=== PATIENT | female | born 1980 | race Caucasian/White ===

== ENCOUNTER → 2016-11-10 | Outpatient (REF) | payer OTHER ==
[~2016-11-10] MED LIST: ACET50TA PO; BACT800T5 PO; IBUP80TA PO; NICO21PAT TOP; SUBO8MIS SL
[2016-11-10 13:56] LABS: MEAN CORPUSCULAR HEMOGLOBIN 28.7 pg (27.0-33.0); MEAN CORPUSCULAR HGB CONC 32.7 g/dl (32.0-36.5); MEAN CORPUSCULAR VOLUME 87.9 fl (80.0-96.0); RED CELL DISTRIBUTION WIDTH 12.9 % (11.5-14.5); WHITE BLOOD COUNT 10.7 10^3/uL (4.0-10.0)
[2016-11-10 15:03] LABS: HCG, SERUM QUANTITATIVE 37400 MIU/ML
== END ==
LOC: M LAB REF 12:40
PROVIDERS: ATTEND Obstetrics & Gynecology
DX: O36.80X0 Pregnancy with inconclusive fetal viability, not applicable or unspecified (principal)

== ENCOUNTER → 2016-12-25 | Outpatient (REF) | payer OTHER | LOC: M LAB REF 15:57 | PROVIDERS: ATTEND Family Medicine Addiction Medicine | DX: F19.21 Other psychoactive substance dependence, in remission (principal) ==

== ENCOUNTER → 2017-01-01 | Outpatient (REF) | payer OTHER ==
[2017-01-10 08:13] LABS: BENZODIAZEPINES, URINE SCREEN Negative ng/mL (Cutoff=200); METHADONE, URINE SCREEN Negative ng/mL (Cutoff=300); URINE NORBUPRENORPHINE Positive (.); URINE NORBUPRENORPHINE CONFIRM 728 ng/mL (Cutoff=10); pH, URINE 6.1 (4.5-8.9)
== END ==
LOC: M LAB REF 16:30
PROVIDERS: ATTEND Family Medicine Addiction Medicine
DX: F19.21 Other psychoactive substance dependence, in remission (principal)

== ENCOUNTER → 2017-01-12 | Outpatient (REF) | payer OTHER ==
[2017-01-17 00:06] LABS: BENZODIAZEPINES, URINE SCREEN Negative ng/mL (Cutoff=200); METHADONE, URINE SCREEN Negative ng/mL (Cutoff=300); URINE NORBUPRENORPHINE Positive (.); URINE NORBUPRENORPHINE CONFIRM 438 ng/mL (Cutoff=10); pH, URINE 7.1 (4.5-8.9)
== END ==
LOC: M LAB REF 17:08
PROVIDERS: ATTEND Family Medicine Addiction Medicine
DX: F19.21 Other psychoactive substance dependence, in remission (principal)

== ENCOUNTER → 2017-01-21 | Outpatient (REF) | payer OTHER | LOC: M LAB REF 17:01 | PROVIDERS: ATTEND Family Medicine Addiction Medicine | DX: F19.21 Other psychoactive substance dependence, in remission (principal) ==

== ENCOUNTER → 2017-01-28 | Outpatient (REF) | payer OTHER ==
[2017-01-28 12:54] LABS: ALBUMIN/GLOBULIN RATIO 0.83 (1.00-1.93); ALKALINE PHOSPHATASE 84 U/L (45-117); ALT/SGPT 44 U/L (12-78); AST/SGOT 16 U/L (7-37); BILIRUBIN,DIRECT 0.1 MG/DL (0.0-0.2); BILIRUBIN,TOTAL 0.3 MG/DL (0.2-1.0); TOTAL PROTEIN 6.6 GM/DL (6.4-8.2)
[2017-01-29 09:55] LABS: HEPATITIS B SURFACE ANTIBODY POSITIVE (POSITIVE)
[2017-02-01 10:10] LABS: HEPATITIS C QUANTITATION HCV Not Detected IU/mL (.)
== END ==
LOC: M SFHCPLAZ 09:33
PROVIDERS: ATTEND Internal Medicine Infectious Disease
DX: B19.21 Unspecified viral hepatitis C with hepatic coma (principal)

== ENCOUNTER → 2017-01-29 | Outpatient (REF) | payer OTHER, MEDICAID | LOC: M LAB REF 16:47 | PROVIDERS: ATTEND Family Medicine Addiction Medicine | DX: F19.21 Other psychoactive substance dependence, in remission (principal) ==

== ENCOUNTER → 2017-02-05 | Outpatient (REF) | payer OTHER | LOC: M LAB REF 15:00 → M LAB 02-06 09:34 | PROVIDERS: ATTEND Family Medicine Addiction Medicine | DX: F19.21 Other psychoactive substance dependence, in remission (principal) ==

== ENCOUNTER → 2017-02-19 | Outpatient (REF) | payer OTHER | LOC: M LAB REF 11:59 | DX: F19.21 Other psychoactive substance dependence, in remission (principal) | CPT/HCPCS: 80362 ==

== ENCOUNTER → 2017-02-26 | Outpatient (REF) | payer OTHER, MEDICAID | LOC: M LAB REF 18:47 | DX: F19.21 Other psychoactive substance dependence, in remission (principal) | CPT/HCPCS: 80307 ==

== ENCOUNTER → 2017-03-12 | Outpatient (REF) | payer OTHER ==
[2017-03-12 14:45] LABS: APPEARANCE, URINE CLOUDY (CLEAR); BACTERIA, URINE AUTO 1+ (NEGATIVE); BILIRUBIN, URINE AUTO NEGATIVE (NEGATIVE); BLOOD, URINE BLOOD 1+ (NEGATIVE); COLOR, URINE YELLOW (YELLOW); GLUCOSE, URINE (UA) AUTO NEGATIVE (NEGATIVE); KETONE, URINE AUTO NEGATIVE (NEGATIVE); LEUKOCYTE ESTERASE, URINE AUTO 3+ (NEGATIVE); MUCUS, URINE SMALL (NEGATIVE); NITRITE, URINE AUTO NEGATIVE (NEGATIVE); PROTEIN, URINE AUTO NEGATIVE (NEGATIVE); RBC, URINE AUTO 20 /HPF (0-3); SPECIFIC GRAVITY URINE AUTO 1.014 (1.002-1.035); SQUAMOUS EPITHELIAL CELL UR AU 1 /HPF (0-6); UROBILINOGEN, URINE AUTO 0.2 mg/dL (0.0-2.0); WBC, URINE AUTO TNTC /HPF (0-3)
== END ==
LOC: M LAB REF 13:23
DX: R30.0 Dysuria (principal)

== ENCOUNTER → 2017-03-19 | Outpatient (REF) | payer OTHER, MEDICAID | LOC: M LAB REF 19:12 | DX: F19.21 Other psychoactive substance dependence, in remission (principal) | CPT/HCPCS: 80307 ==

== ENCOUNTER → 2017-04-02 | Outpatient (REF) | payer OTHER, MEDICAID | LOC: M LAB REF 21:20 | DX: F19.21 Other psychoactive substance dependence, in remission (principal) | CPT/HCPCS: 80307 ==

== ENCOUNTER → 2017-04-19 | Outpatient (REF) | payer OTHER, MEDICAID | LOC: M LAB REF 19:22 | DX: F19.21 Other psychoactive substance dependence, in remission (principal) ==

== ENCOUNTER → 2017-04-20 | Outpatient (CLI) | payer OTHER ==
[2017-04-20 13:55] LABS: GLUCOSE CHALLENGE TEST 1 HOUR 120 MG/DL (LESS THAN 140)
[2017-04-20 14:00] LABS: HEMATOCRIT 31.9 % (36.0-47.0); HEMOGLOBIN 10.6 g/dl (12.0-16.0); MEAN CORPUSCULAR HEMOGLOBIN 28.7 pg (27.0-33.0); MEAN CORPUSCULAR HGB CONC 33.2 g/dl (32.0-36.5); MEAN CORPUSCULAR VOLUME 86.4 fl (80.0-96.0); PLATELET COUNT, AUTOMATED 304 10^3/uL (150-450); RED BLOOD COUNT 3.69 10^6/uL (4.00-5.40); RED CELL DISTRIBUTION WIDTH 12.9 % (11.5-14.5); WHITE BLOOD COUNT 13.4 10^3/uL (4.0-10.0)
== END ==
LOC: M LAB 11:29
DX: Z34.82 Encounter for supervision of other normal pregnancy, second trimester (principal)
CPT/HCPCS: 82950

== ENCOUNTER → 2017-05-04 | Outpatient (REF) | payer OTHER | LOC: M LAB REF 16:32 | DX: F19.21 Other psychoactive substance dependence, in remission (principal) ==

== ENCOUNTER → 2017-05-06 | Outpatient (REF) | payer OTHER | LOC: M LAB REF 17:19 | DX: O09.93 Supervision of high risk pregnancy, unspecified, third trimester (principal); Z3A.35 35 weeks gestation of pregnancy ==

== ENCOUNTER → 2017-05-19 | Outpatient (REF) | payer OTHER ==
[2017-05-26 00:08] LABS: AMPHETAMINE SCREEN, URINE Negative ng/mL (Cutoff=1000); BARBITURATES SCREEN, URINE Negative ng/mL (Cutoff=200); BENZODIAZEPINES, URINE SCREEN Negative ng/mL (Cutoff=200); CANNABINOID SCREEN, URINE Negative ng/mL (Cutoff=20); COCAINE SCREEN, URINE Negative ng/mL (Cutoff=300); CREATININE, URINE 140.8 mg/dL (20.0-300.0); FENTANYL URINE SCREEN Negative pg/mL (Cutoff=2000); METHADONE, URINE SCREEN Negative ng/mL (Cutoff=300); NALOXONE RESULT Positive (.); OPIATE SCREEN, URINE Negative ng/mL (Cutoff=300); OXYCODONE, SCREEN, URINE Negative ng/mL (Cutoff=100); PCP SCREEN, URINE Negative ng/mL (Cutoff=25); SPECIFIC GRAVITY, URINE 1.023 (.); URINE BUPRENORPHINE Positive (.); URINE BUPRENORPHINE Positive (Cutoff=10); URINE BUPRENORPHINE See Final Results ng/mL (Cutoff=10); URINE BUPRENORPHINE CONFIRM 76 ng/mL (Cutoff=10); URINE NORBUPRENORPHINE Positive (.); URINE NORBUPRENORPHINE CONFIRM 446 ng/mL (Cutoff=10)
== END ==
LOC: M LAB REF 16:48
DX: F19.21 Other psychoactive substance dependence, in remission (principal)
CPT/HCPCS: 80362

== ENCOUNTER → 2017-06-01 | Outpatient (REF) | payer OTHER ==
[2017-06-07 14:12] LABS: AMPHETAMINE SCREEN, URINE Negative ng/mL (Cutoff=1000); BARBITURATES SCREEN, URINE Negative ng/mL (Cutoff=200); BENZODIAZEPINES, URINE SCREEN Negative ng/mL (Cutoff=200); CANNABINOID SCREEN, URINE Negative ng/mL (Cutoff=20); COCAINE SCREEN, URINE Negative ng/mL (Cutoff=300); CREATININE, URINE 72.5 mg/dL (20.0-300.0); FENTANYL URINE SCREEN Negative pg/mL (Cutoff=2000); METHADONE, URINE SCREEN Negative ng/mL (Cutoff=300); NALOXONE RESULT Positive (.); OPIATE SCREEN, URINE Negative ng/mL (Cutoff=300); OXYCODONE, SCREEN, URINE Negative ng/mL (Cutoff=100); PCP SCREEN, URINE Negative ng/mL (Cutoff=25); SPECIFIC GRAVITY, URINE 1.017 (.); URINE BUPRENORPHINE Positive (.); URINE BUPRENORPHINE Positive (Cutoff=10); URINE BUPRENORPHINE See Final Results ng/mL (Cutoff=10); URINE BUPRENORPHINE CONFIRM 100 ng/mL (Cutoff=10); URINE NORBUPRENORPHINE Positive (.); URINE NORBUPRENORPHINE CONFIRM 306 ng/mL (Cutoff=10); pH, URINE 6.9 (4.5-8.9)
== END ==
LOC: M LAB REF 11:10
DX: F19.21 Other psychoactive substance dependence, in remission (principal)
CPT/HCPCS: 80362

== ENCOUNTER 2017-06-03 05:02 | Inpatient (IN) | payer OTHER ==
[2017-06-03] MEDS: LR 1,000 ML IV ×4 (06:26→15:47)
[2017-06-03] MEDS ORDERED: LR 1,000 ML IV (06:30)
[2017-06-03 07:12] LABS: HEMATOCRIT 33.5 % (36.0-47.0); HEMOGLOBIN 11.2 g/dl (12.0-15.5); MEAN CORPUSCULAR HEMOGLOBIN 28.2 pg (27.0-33.0); MEAN CORPUSCULAR HGB CONC 33.4 g/dl (32.0-36.5); MEAN CORPUSCULAR VOLUME 84.4 fl (80.0-96.0); PLATELET COUNT, AUTOMATED 323 10^3/uL (150-450); RED BLOOD COUNT 3.97 10^6/uL (4.00-5.40); RED CELL DISTRIBUTION WIDTH 13.1 % (11.5-14.5); WHITE BLOOD COUNT 15.6 10^3/uL (4.0-10.0)
[2017-06-03] MEDS: BICITRA 30ML SOLN UDC PO (07:14)
[2017-06-03] MEDS ORDERED: METOCLOPRAMIDE INJ 10MG/2ML VIAL (J2765) IV ×2 (07:57→09:15)
[2017-06-03] MEDS ORDERED: ONDANSETRON 4MG/2ML VIAL (J2405) IV ×3 (07:57→09:15)
[2017-06-03] MEDS ORDERED: NALBUPHINE HCL 10 MG/ML AMP (J2300) IV ×2 (07:57→09:15)
[2017-06-03] MEDS ORDERED: NALOXONE INJ 0.4 MG/1 ML VIAL (J2310) IV ×2 (07:57)
[2017-06-03] MEDS ORDERED: MOM 30ML SUSPENSION UDC PO (08:00)
[2017-06-03] MEDS ORDERED: METHYLERGONOVINE MALEATE 0.2 MG TAB PO (08:00)
[2017-06-03] MEDS ORDERED: RHOGAM 300 MCG (1500 IU) INJ (J2790) IM (08:00)
[2017-06-03] MEDS ORDERED: MEASLES,MUMPS,RUBELLA VACCINE INJ (MMR-II) (90707) SC (08:00)
[2017-06-03] MEDS ORDERED: MORPHINE PRES-FREE INJ 10 MG/10 ML VIAL (J2274) As Ordered (08:16)
[2017-06-03] MEDS ORDERED: PHENYLephrine HCL 500 MCG/5 ML (100MCG/ML) SYRINGE (J2370) As Ordered (08:16)
[2017-06-03] MEDS ORDERED: ONDANSETRON 4MG/2ML VIAL (J2405) As Ordered (08:16)
[2017-06-03] MEDS ORDERED: OXYTOCIN INJ 10 UNITS/ML VIAL (J2590) As Ordered (08:16)
[2017-06-03] MEDS ORDERED: KETOROLAC 60 MG/2 ML VIAL (J1885) As Ordered (08:16)
[2017-06-03] MEDS ORDERED: METOCLOPRAMIDE INJ 10MG/2ML VIAL (J2765) As Ordered (08:16)
[2017-06-03 08:33] LABS: CORD GAS ABE A -1.6; CORD GAS HCO3 A 26.8 MEQ/L; CORD GAS O2 SAT A 21.5 %; CORD GAS PCO2 A 59.9 mmHg; CORD GAS PH A 7.269 UNITS; CORD GAS PO2 A 13.6 mmHg; CORD GAS SBC A 21.1 MEQ/L; CORD GAS TCO2 A 28.7 MEQ/L
[2017-06-03 08:36] LABS: CORD GAS ABE V -1.7; CORD GAS HCO3 V 24.5 MEQ/L; CORD GAS O2 SAT V 75.4 %; CORD GAS PCO2 V 46.4 mmHg; CORD GAS PO2 V 34.5 mmHg; CORD GAS SBC V 22.5 MEQ/L; CORD GAS TCO2 V 25.9 MEQ/L
[2017-06-03] MEDS: DOCUSATE SODIUM 100 MG CAP PO ×2 (09:00→21:39)
[2017-06-03] MEDS: PRENATAL VITAMINS CHEWABLE TABLET PO (09:00)
[2017-06-03] MEDS ORDERED: MEPERIDINE INJ 25 MG/ML VIAL (J2175) IV (09:15)
[2017-06-03] MEDS ORDERED: fentaNYL 100 MCG/2 ML INJECTION (J3010) IV (09:15)
[2017-06-03] MEDS: BUPRENORPHINE/NALOXONE 8-2MG SUBLINGUAL TABLET(SUBOXONE) SL ×2 (11:37→21:39)
[2017-06-03] MEDS: ACETAMINOPHEN 500 MG TAB PO (14:32)
[2017-06-03] MEDS: IBUPROFEN 800 MG TAB PO ×2 (16:31→23:49)
[2017-06-03] MEDS: NICOTINE 14 MG/24 HR TRANSDERMAL TD (16:31)
[2017-06-04] MEDS: ACETAMINOPHEN 500 MG TAB PO ×2 (03:33→20:02)
[2017-06-04] MEDS: BUPRENORPHINE/NALOXONE 8-2MG SUBLINGUAL TABLET(SUBOXONE) SL ×3 (05:46→21:12)
[2017-06-04 07:49] LABS: HEMATOCRIT 32.2 % (36.0-47.0); HEMOGLOBIN 10.4 g/dl (12.0-15.5); MEAN CORPUSCULAR HEMOGLOBIN 28.7 pg (27.0-33.0); MEAN CORPUSCULAR HGB CONC 32.3 g/dl (32.0-36.5); MEAN CORPUSCULAR VOLUME 88.7 fl (80.0-96.0); PLATELET COUNT, AUTOMATED 234 10^3/uL (150-450); RED BLOOD COUNT 3.63 10^6/uL (4.00-5.40); RED CELL DISTRIBUTION WIDTH 13.2 % (11.5-14.5); WHITE BLOOD COUNT 11.3 10^3/uL (4.0-10.0)
[2017-06-04] MEDS: NICOTINE 14 MG/24 HR TRANSDERMAL TD (08:48)
[2017-06-04] MEDS: DOCUSATE SODIUM 100 MG CAP PO ×2 (08:48→21:11)
[2017-06-04] MEDS: PRENATAL VITAMINS CHEWABLE TABLET PO (08:48)
[2017-06-04] MEDS: IBUPROFEN 800 MG TAB PO ×2 (08:49→16:29)
[2017-06-05] MEDS: BUPRENORPHINE/NALOXONE 8-2MG SUBLINGUAL TABLET(SUBOXONE) SL (05:40)
[2017-06-05] MEDS: IBUPROFEN 800 MG TAB PO ×2 (08:42)
[2017-06-05] MEDS: PRENATAL VITAMINS CHEWABLE TABLET PO (08:42)
[2017-06-05] MEDS: DOCUSATE SODIUM 100 MG CAP PO (08:42)
[2017-06-05] MEDS: NICOTINE 14 MG/24 HR TRANSDERMAL TD (08:42)
== END 2017-06-05 14:52 | disposition home or self-care (01) | DRG 540 ==
LOC: M LDI 05:02 → M OBS 10:05
PROVIDERS: Obstetrics & Gynecology
PROC: 10D00Z1 Extraction of Products of Conception, Low, Open Approach (ICD-10-PCS; principal; 2017-06-03 07:30)
PROC: 0HB7XZZ Excision of Abdomen Skin, External Approach (ICD-10-PCS; 2017-06-03 07:30)
DX: O34.211 Maternal care for low transverse scar from previous cesarean delivery (principal); Z37.0 Single live birth; Z3A.39 39 weeks gestation of pregnancy

== ENCOUNTER → 2017-06-16 | Outpatient (REF) | payer OTHER ==
[2017-06-16 21:07] LABS: BASO # 0.1 10^3/uL (0.0-0.2); BASO % 0.8 % (0.0-1.0); EOS # 0.4 10^3/uL (0.0-0.50); HEMATOCRIT 35.9 % (36.0-47.0); HEMOGLOBIN 11.6 g/dl (12.0-15.5); IMMATURE GRANULOCYTE % 0.4 % (0-3.0); LYMPH # 2.7 10^3/uL (1.5-4.5); LYMPH % 27.4 % (24.0-44.0); MEAN CORPUSCULAR HGB CONC 32.3 g/dl (32.0-36.5); MEAN CORPUSCULAR VOLUME 86.7 fl (80.0-96.0); MONO # 0.6 10^3/uL (0.0-0.8); MONO % 5.7 % (0.0-5.0); NEUTROPHILS # 6.1 10^3/uL (1.8-7.7); NEUTROPHILS % 61.7 % (36.0-66.0); PLATELET COUNT, AUTOMATED 471 10^3/uL (150-450); RED BLOOD COUNT 4.14 10^6/uL (4.00-5.40); RED CELL DISTRIBUTION WIDTH 12.7 % (11.5-14.5); WHITE BLOOD COUNT 9.9 10^3/uL (4.0-10.0)
[2017-06-16 21:26] LABS: ALBUMIN 3.3 GM/DL (3.2-5.2); ALBUMIN/GLOBULIN RATIO 0.87 (1.00-1.93); ALKALINE PHOSPHATASE 92 U/L (45-117); ALT/SGPT 21 U/L (12-78); ANION GAP 10 MEQ/L (8-16); AST/SGOT 19 U/L (7-37); BILIRUBIN,TOTAL 0.3 MG/DL (0.2-1.0); BLOOD UREA NITROGEN 18 MG/DL (7-18); CALCIUM LEVEL 8.5 MG/DL (8.5-10.1); CARBON DIOXIDE LEVEL 25 MEQ/L (21-32); CHLORIDE LEVEL 108 MEQ/L (98-107); CREATININE FOR GFR 1.01 MG/DL (0.55-1.30); GLOMERULAR FILTRATION RATE > 60.0 (>60); GLUCOSE, FASTING 109 MG/DL (70-100); POTASSIUM SERUM 3.9 MEQ/L (3.5-5.1); SODIUM LEVEL 143 MEQ/L (136-145); TOTAL PROTEIN 7.1 GM/DL (6.4-8.2)
[2017-06-21 14:12] LABS: AMPHETAMINE SCREEN, URINE Negative ng/mL (Cutoff=1000); BARBITURATES SCREEN, URINE Negative ng/mL (Cutoff=200); BENZODIAZEPINES, URINE SCREEN Negative ng/mL (Cutoff=200); CANNABINOID SCREEN, URINE Negative ng/mL (Cutoff=20); COCAINE SCREEN, URINE Negative ng/mL (Cutoff=300); CREATININE, URINE 59.9 mg/dL (20.0-300.0); FENTANYL URINE SCREEN Negative pg/mL (Cutoff=2000); METHADONE, URINE SCREEN Negative ng/mL (Cutoff=300); OPIATE SCREEN, URINE Negative ng/mL (Cutoff=300); OXYCODONE, SCREEN, URINE Negative ng/mL (Cutoff=100); PCP SCREEN, URINE Negative ng/mL (Cutoff=25); SPECIFIC GRAVITY, URINE 1.018 (.); URINE BUPRENORPHINE Positive (.); URINE BUPRENORPHINE Positive (Cutoff=10); URINE BUPRENORPHINE See Final Results ng/mL (Cutoff=10); URINE BUPRENORPHINE CONFIRM 110 ng/mL (Cutoff=10); URINE NORBUPRENORPHINE Positive (.); URINE NORBUPRENORPHINE CONFIRM 416 ng/mL (Cutoff=10); pH, URINE 6.8 (4.5-8.9)
== END ==
LOC: M LAB REF 17:28
DX: F19.21 Other psychoactive substance dependence, in remission (principal); R80.8 Other proteinuria; R60.0 Localized edema

== ENCOUNTER → 2017-06-23 | Outpatient (REF) | payer OTHER | LOC: M LAB REF 16:20 | DX: F19.21 Other psychoactive substance dependence, in remission (principal) | CPT/HCPCS: 80362 ==

== ENCOUNTER → 2017-06-30 | Outpatient (REF) | payer OTHER ==
[2017-07-07 10:20] LABS: AMPHETAMINE SCREEN, URINE Negative ng/mL (Cutoff=1000); BARBITURATES SCREEN, URINE Negative ng/mL (Cutoff=200); BENZODIAZEPINES, URINE SCREEN Negative ng/mL (Cutoff=200); CANNABINOID SCREEN, URINE Negative ng/mL (Cutoff=20); COCAINE SCREEN, URINE Negative ng/mL (Cutoff=300); CREATININE, URINE 81.6 mg/dL (20.0-300.0); FENTANYL URINE SCREEN Negative pg/mL (Cutoff=2000); METHADONE, URINE SCREEN Negative ng/mL (Cutoff=300); NALOXONE RESULT Positive (.); OPIATE SCREEN, URINE Negative ng/mL (Cutoff=300); OXYCODONE, SCREEN, URINE Negative ng/mL (Cutoff=100); PCP SCREEN, URINE Negative ng/mL (Cutoff=25); SPECIFIC GRAVITY, URINE 1.026 (.); URINE BUPRENORPHINE Positive (.); URINE BUPRENORPHINE Positive (Cutoff=10); URINE BUPRENORPHINE See Final Results ng/mL (Cutoff=10); URINE BUPRENORPHINE CONFIRM 302 ng/mL (Cutoff=10); URINE NORBUPRENORPHINE Positive (.); URINE NORBUPRENORPHINE CONFIRM 944 ng/mL (Cutoff=10)
== END ==
LOC: M LAB REF 09:50
DX: F19.21 Other psychoactive substance dependence, in remission (principal)
CPT/HCPCS: 80362

== ENCOUNTER → 2017-07-14 | Outpatient (REF) | payer OTHER ==
[2017-07-27 08:07] LABS: AMPHETAMINE SCREEN, URINE Negative ng/mL (Cutoff=1000); BARBITURATES SCREEN, URINE Negative ng/mL (Cutoff=200); BENZODIAZEPINES, URINE SCREEN Negative ng/mL (Cutoff=200); CANNABINOID SCREEN, URINE Negative ng/mL (Cutoff=20); COCAINE SCREEN, URINE Negative ng/mL (Cutoff=300); CREATININE, URINE 91.7 mg/dL (20.0-300.0); FENTANYL URINE SCREEN Negative pg/mL (Cutoff=2000); METHADONE, URINE SCREEN Negative ng/mL (Cutoff=300); NALOXONE RESULT Positive (.); OPIATE SCREEN, URINE Negative ng/mL (Cutoff=300); OXYCODONE, SCREEN, URINE Negative ng/mL (Cutoff=100); PCP SCREEN, URINE Negative ng/mL (Cutoff=25); SPECIFIC GRAVITY, URINE 1.021 (.); URINE BUPRENORPHINE Positive (.); URINE BUPRENORPHINE Positive (Cutoff=10); URINE BUPRENORPHINE See Final Results ng/mL (Cutoff=10); URINE BUPRENORPHINE CONFIRM 90 ng/mL (Cutoff=10); URINE NORBUPRENORPHINE Positive (.); URINE NORBUPRENORPHINE CONFIRM 402 ng/mL (Cutoff=10); pH, URINE 5.9 (4.5-8.9)
== END ==
LOC: M LAB REF 07-15 08:22
DX: F19.21 Other psychoactive substance dependence, in remission (principal)

== ENCOUNTER → 2017-12-13 | Outpatient (CLI) | payer OTHER | LOC: M WHC 11:35 | DX: Z32.01 Encounter for pregnancy test, result positive (principal) | CPT/HCPCS: 76811 ==

== ENCOUNTER → 2018-01-11 | Outpatient (REF) | payer OTHER ==
[2018-01-11 18:10] LABS: HEMATOCRIT 34.3 % (36.0-47.0); HEMOGLOBIN 11.3 g/dl (12.0-15.5); MEAN CORPUSCULAR HGB CONC 32.9 g/dl (32.0-36.5); MEAN CORPUSCULAR VOLUME 87.9 fl (80.0-96.0); PLATELET COUNT, AUTOMATED 295 10^3/uL (150-450); RED CELL DISTRIBUTION WIDTH 12.9 % (11.5-14.5); WHITE BLOOD COUNT 11.6 10^3/uL (4.0-10.0)
[2018-01-11 18:42] LABS: HCG, SERUM QUANTITATIVE 6051 MIU/ML
[2018-01-12 11:32] LABS: RUBELLA IgG QUALITATIVE IMMUNE (IMMUNE)
[2018-01-12 12:01] LABS: HIV 1&2 SCREEN CENTAUR NEGATIVE (NEGATIVE)
[2018-01-12 12:15] LABS: HEPATITIS C VIRUS ABY INDEX > 11.0 INDEX (<0.8)
[2018-01-12 14:28] LABS: HBsAg Prenatal NEGATIVE (NEGATIVE)
[2018-01-17 14:10] LABS: HCV RNA NAA QUALITATIVE Negative (Negative)
== END ==
LOC: M LAB REF 17:21
DX: Z36.89 Encounter for other specified antenatal screening (principal)
CPT/HCPCS: 86762

== ENCOUNTER → 2018-03-01 | Outpatient (CLI) | payer OTHER ==
[~2018-03-01] MED LIST changes: +ACET500T15 PO; +ADVI200T PO; +BUPR8SUB SL; +DOK100TA PO; +FERR32TA PO; +PRENTAB55 PO
[2018-03-01 12:16] LABS: HEMATOCRIT 33.5 % (36.0-47.0); HEMOGLOBIN 11.3 g/dl (12.0-15.5); MEAN CORPUSCULAR HEMOGLOBIN 29.1 pg (27.0-33.0); MEAN CORPUSCULAR HGB CONC 33.7 g/dl (32.0-36.5); MEAN CORPUSCULAR VOLUME 86.3 fl (80.0-96.0); PLATELET COUNT, AUTOMATED 287 10^3/uL (150-450); RED BLOOD COUNT 3.88 10^6/uL (4.00-5.40); WHITE BLOOD COUNT 12.5 10^3/uL (4.0-10.0)
== END ==
LOC: M LAB 10:49
PROVIDERS: ATTEND Obstetrics & Gynecology
DX: Z36.89 Encounter for other specified antenatal screening (principal)

== ENCOUNTER → 2018-03-29 | Outpatient (CLI) | payer OTHER ==
--- NOTE | 2018-03-29 11:44 | REP ---
OB ULTRASOUND: Real-time sonographic evaluation of the gravid uterus performed. There is a single living intrauterine gestation. Estimated gestational age 34 weeks 4 days. EDC 05/06/2018. Today's measurements indicate appropriate growth. BPD 83 mm 33 weeks 2 days, 30th percentile HC 313 mm 35 weeks 0 days, 56th percentile AC 316 mm 35 weeks 4 days, 64th percentile FL 69 mm 35 weeks 2 days, 59th percentile HC/AC ratio 0.99 within normal range. Estimated weight 3605 grams, 57th percentile. Cervix is closed and measures 6 cm in length. heart rate 126 beats per minute. stomach, kidneys, bladder, and spine are visualized and are grossly unremarkable. position vertex. Placenta is anterior and grade 0. There is again evidence of complete placenta previa. Amniotic fluid appears within normal limits.
== END ==
LOC: M WHC 08:58
PROVIDERS: ATTEND Obstetrics & Gynecology
DX: O44.03 Complete placenta previa NOS or without hemorrhage, third trimester (principal); Z36.89 Encounter for other specified antenatal screening; Z3A.34 34 weeks gestation of pregnancy

== ENCOUNTER → 2018-03-30 | Outpatient (REF) | payer OTHER ==
[2018-03-30 15:07] LABS: INFLUENZA A AMPLIFICATION NEGATIVE (NEGATIVE); INFLUENZA B AMPLIFICATION NEGATIVE (NEGATIVE)
== END ==
LOC: M LAB REF 14:04
PROVIDERS: ATTEND Physician Assistant
DX: J11.1 Influenza due to unidentified influenza virus with other respiratory manifestations (principal)

== ENCOUNTER → 2018-04-05 | Outpatient (REF) | payer OTHER | LOC: M LAB REF 13:21 | PROVIDERS: ATTEND Obstetrics & Gynecology | DX: Z34.83 Encounter for supervision of other normal pregnancy, third trimester (principal); Z3A.35 35 weeks gestation of pregnancy ==

== ENCOUNTER 2018-04-20 07:07 | Inpatient (IN) | payer OTHER ==
[2018-04-20] VITALS (30 sets, daily range): BP systolic 75–112; BP diastolic 37–56
[~2018-04-20] VITALS: Ht 160 cm; Wt 114.8 kg
[2018-04-20] MEDS ORDERED: LACTATED RINGER'S 1000 ML IV ONE (07:30)
[2018-04-20] MEDS ORDERED: BICITRA 30ML SOLN UDC PO ONE (07:30)
[2018-04-20 08:24] LABS: HEMATOCRIT 32.4 % (36.0-47.0); HEMOGLOBIN 10.6 g/dl (12.0-15.5); MEAN CORPUSCULAR HEMOGLOBIN 27.7 pg (27.0-33.0); MEAN CORPUSCULAR HGB CONC 32.7 g/dl (32.0-36.5); MEAN CORPUSCULAR VOLUME 84.8 fl (80.0-96.0); PLATELET COUNT, AUTOMATED 271 10^3/uL (150-450); RED BLOOD COUNT 3.82 10^6/uL (4.00-5.40); WHITE BLOOD COUNT 11.2 10^3/uL (4.0-10.0)
[2018-04-20] MEDS: LR 1,000 ML IV SCH ×2 (08:59→09:29)
[2018-04-20] MEDS ORDERED: ONDANSETRON 4MG/2ML VIAL (J2405) IV PRN ×2 (10:00→11:30)
[2018-04-20] MEDS ORDERED: NALBUPHINE HCL 10 MG/ML AMP (J2300) IV PRN (10:00)
[2018-04-20] MEDS ORDERED: NALOXONE INJ 0.4 MG/1 ML VIAL (J2310) IV PRN ×2 (10:00)
[2018-04-20] MEDS ORDERED: METOCLOPRAMIDE INJ 10MG/2ML VIAL (J2765) IV PRN ×2 (10:00→11:30)
[2018-04-20] MEDS ORDERED: diphenhydrAMINE INJ 50MG/ML VIAL (J1200) IV PRN (10:00)
[2018-04-20] MEDS ORDERED: KETOROLAC 60 MG/2 ML VIAL (J1885) As Ordered ONE ×2 (10:03→14:25)
[2018-04-20] MEDS ORDERED: MORPHINE PRES-FREE INJ 10 MG/10 ML VIAL (J2274) As Ordered ONE ×2 (10:03→14:25)
[2018-04-20] MEDS ORDERED: OXYTOCIN INJ 10 UNITS/ML VIAL (J2590) As Ordered ONE ×2 (10:03→14:25)
[2018-04-20] MEDS ORDERED: ONDANSETRON 4MG/2ML VIAL (J2405) As Ordered ONE ×2 (10:03→14:25)
[2018-04-20] MEDS ORDERED: BUPIVACAINE/DEXTROSE 0.75% 2 ML AMP As Ordered ONE ×2 (10:03→14:25)
[2018-04-20] MEDS ORDERED: ePHEDrine SULFATE 25 MG/5 ML(5MG/ML) SYRINGE As Ordered ONE ×2 (10:11→11:46)
[2018-04-20] MEDS ORDERED: PHENYLephrine HCL 500 MCG/5 ML (100MCG/ML) SYRINGE (J2370) As Ordered ONE (10:11)
[2018-04-20] MEDS ORDERED: GLYCOPYRROLATE INJ 0.2 MG/ML 2 ML VIAL As Ordered ONE (10:11)
[2018-04-20 10:25] LABS: CORD GAS ABE A -0.3; CORD GAS HCO3 A 27.9 MEQ/L; CORD GAS O2 SAT A 40.9 %; CORD GAS PCO2 A 60.3 mmHg; CORD GAS PH A 7.283 UNITS; CORD GAS PO2 A 20.3 mmHg; CORD GAS SBC A 22.8 MEQ/L; CORD GAS TCO2 A 29.7 MEQ/L
[2018-04-20 10:30] LABS: CORD GAS ABE V -3.1; CORD GAS HCO3 V 23.9 MEQ/L; CORD GAS O2 SAT V 68.3 %; CORD GAS PH V 7.297 UNITS; CORD GAS PO2 V 29.4 mmHg; CORD GAS SBC V 21.2 MEQ/L; CORD GAS TCO2 V 25.4 MEQ/L
[2018-04-20] MEDS ORDERED: METOCLOPRAMIDE INJ 10MG/2ML VIAL (J2765) As Ordered ONE (10:31)
[2018-04-20] MEDS ORDERED: fentaNYL 100 MCG/2 ML INJECTION (J3010) IV PRN (11:30)
[2018-04-20] MEDS ORDERED: PERCOCET 5MG/325MG TAB PO PRN (11:30)
[2018-04-20] MEDS ORDERED: LR 1,000 ML IV SCH (11:30)
[2018-04-20] MEDS ORDERED: OXYTOCIN DRIP 30 UNITS in APPROPRIATE DILUENT 1 EA IV SCH (11:44)
[2018-04-20] MEDS ORDERED: MOM 30ML SUSPENSION UDC PO PRN (11:45)
[2018-04-20] MEDS ORDERED: MEASLES,MUMPS,RUBELLA VACCINE INJ (MMR-II) (90707) SC SCH (11:45)
[2018-04-20] MEDS ORDERED: METHYLERGONOVINE MALEATE 0.2 MG TAB PO PRN (11:45)
[2018-04-20] MEDS ORDERED: RHOGAM 300 MCG (1500 IU) INJ (J2790) IM SCH (11:45)
[2018-04-20] MEDS: ePHEDrine INJ 50 MG/ML VIAL IV PRN ×2 (11:48→11:52)
[2018-04-20] MEDS ORDERED: ePHEDrine INJ 50 MG/ML VIAL IV STA (12:05)
[2018-04-20] MEDS ORDERED: OXYTOCIN 30 UNITS IN 0.9% NaCl 500ML IV BAG (J2590) As Ordered ONE (12:09)
[2018-04-20 12:22] LABS: HEMATOCRIT 27.9 % (36.0-47.0); MEAN CORPUSCULAR HEMOGLOBIN 27.7 pg (27.0-33.0); MEAN CORPUSCULAR HGB CONC 32.3 g/dl (32.0-36.5); MEAN CORPUSCULAR VOLUME 85.8 fl (80.0-96.0); PLATELET COUNT, AUTOMATED 228 10^3/uL (150-450); RED BLOOD COUNT 3.25 10^6/uL (4.00-5.40); WHITE BLOOD COUNT 12.6 10^3/uL (4.0-10.0)
[2018-04-20] MEDS: METHYLERGONOVINE MALEATE 0.2 MG TAB PO SCH ×3 (12:32→20:32)
[2018-04-20] MEDS: ACETAMINOPHEN TAB 650MG DOSE (2X325MG) PO PRN ×2 (14:11→19:34)
[2018-04-20 15:52] LABS: HEMATOCRIT 25.7 % (36.0-47.0); HEMOGLOBIN 8.4 g/dl (12.0-15.5); MEAN CORPUSCULAR HEMOGLOBIN 27.5 pg (27.0-33.0); MEAN CORPUSCULAR HGB CONC 32.7 g/dl (32.0-36.5); MEAN CORPUSCULAR VOLUME 84.3 fl (80.0-96.0); PLATELET COUNT, AUTOMATED 231 10^3/uL (150-450); RED BLOOD COUNT 3.05 10^6/uL (4.00-5.40); WHITE BLOOD COUNT 12.6 10^3/uL (4.0-10.0)
[2018-04-20 20:01] LABS: HEMATOCRIT 24.3 % (36.0-47.0); HEMOGLOBIN 7.9 g/dl (12.0-15.5); MEAN CORPUSCULAR HEMOGLOBIN 27.9 pg (27.0-33.0); MEAN CORPUSCULAR HGB CONC 32.5 g/dl (32.0-36.5); MEAN CORPUSCULAR VOLUME 85.9 fl (80.0-96.0); PLATELET COUNT, AUTOMATED 231 10^3/uL (150-450); RED BLOOD COUNT 2.83 10^6/uL (4.00-5.40); WHITE BLOOD COUNT 10.8 10^3/uL (4.0-10.0)
[2018-04-20] MEDS: BUPRENORPHINE/NALOXONE 8-2MG SUBLINGUAL TABLET(SUBOXONE) SL SCH (20:32)
[2018-04-20] MEDS: DOCUSATE SODIUM 100 MG CAP PO SCH (20:33)
[2018-04-21] VITALS (10 sets, daily range): BP systolic 94–121; BP diastolic 45–65
[2018-04-21] MEDS: METHYLERGONOVINE MALEATE 0.2 MG TAB PO SCH ×2 (02:46→06:20)
[2018-04-21] MEDS: LR 1,000 ML IV SCH ×2 (02:46→06:20)
[2018-04-21] MEDS: ACETAMINOPHEN TAB 650MG DOSE (2X325MG) PO PRN ×5 (06:20→22:33)
[2018-04-21 06:26] LABS: HEMATOCRIT 29.7 % (36.0-47.0); HEMOGLOBIN 9.7 g/dl (12.0-15.5); MEAN CORPUSCULAR HGB CONC 32.7 g/dl (32.0-36.5); MEAN CORPUSCULAR VOLUME 85.8 fl (80.0-96.0); PLATELET COUNT, AUTOMATED 217 10^3/uL (150-450); RED BLOOD COUNT 3.46 10^6/uL (4.00-5.40)
[2018-04-21] MEDS: DOCUSATE SODIUM 100 MG CAP PO SCH ×2 (08:40→21:02)
[2018-04-21] MEDS: PRENATAL VITAMINS CHEWABLE TABLET PO SCH (08:40)
[2018-04-21] MEDS: BUPRENORPHINE/NALOXONE 8-2MG SUBLINGUAL TABLET(SUBOXONE) SL SCH ×2 (08:41→21:02)
[2018-04-21] MEDS: IBUPROFEN 800 MG TAB PO PRN ×2 (08:41→16:57)
--- NOTE | 2018-04-21 08:54 | HPE ---
DATE OF ADMISSION: 04/20/2018 Dana is a 37-year-old female 4, para 2-0-1-2 with a history of two prior sections and a history of drug abuse currently on Suboxone. She has a complete placenta previa with this and is scheduled for elective repeat section with possible hysterectomy. Her records reviewed which was essentially unremarkable other than the history of drug abuse currently on a Suboxone program, she is taking 8 mg twice a day. PAST MEDICAL HISTORY: Significant for hepatitis C. PAST SURGICAL HISTORY: sections and gallbladder removal. SOCIAL HISTORY: She is current smoker, former drug abuser, used cocaine and marijuana in the past. She is currently on a drug addiction program on Suboxone. FAMILY HISTORY: Significant for high blood pressure. MEDICATIONS: - vitamins - Suboxone 8 mg twice a day ALLERGIES: To LATEX. PHYSICAL EXAMINATION: Obese female in no acute distress. Abdomen soft, nontender, nondistended. Extremities show no clubbing, cyanosis or edema. Tracing reviewed, category 1 tracing. ASSESSMENT: 1. Intrauterine at 37 and 5 weeks gestation with a history of prior section, placenta previa, being admitted for elective repeat section. The patient also desires permanent tubal sterilization. PLAN: Admit to labor and delivery. Routine labs sent. The patient is type and cross for 2 units of packed red blood cells (RBCs). The risks of hysterectomy discussed with the patient was well as potential blood loss and transfusion. Both the patient and father of the baby agrees and we will proceed with a repeat section, bilateral tubal ligation and revision of old scar.
--- NOTE | 2018-04-21 09:16 | RO ---
DATE OF PROCEDURE: 04/20/2018 Dana is a 37-year-old female who was admitted at 37-5/7 weeks gestation with a history of prior section and complete previa during this . The patient also desires permanent tubal sterilization. PREOPERATIVE DIAGNOSES: 1. Intrauterine at 37-5/7 weeks gestation with a history of prior section. 2. Complete placenta previa. 3. Desires permanent tubal sterilization. POSTOPERATIVE DIAGNOSES: 1. Intrauterine at 37-5/7 weeks gestation with a history of prior section. 2. Complete placenta previa. 3. Desires permanent tubal sterilization. 4. Placenta accreta. 5. Large thin lower uterine window segment. PROCEDURE PERFORMED: 1. Repeat section. 2. Bilateral salpingectomy. 3. Revision of old scar. SURGEON: Dr. Dixon Linda FINANCIAL SALES ADVISOR: Dr. Robbins ANESTHESIA: Spinal. COMPLICATIONS: None. ESTIMATED BLOOD LOSS: 840 mL. FINDINGS: Placenta previa with an anterior placenta and placental accreta. Dense scar tissue was noted to the pelvic sidewalls. SPECIMEN SENT TO LAB: Bilateral tubes and the placenta. DESCRIPTION OF PROCEDURE: After obtaining informed consent, the patient was taken to the operating room where spinal anesthetic was found to be adequate. She was then draped and prepped in the usual sterile fashion in the supine position with the help of my office manager executive assistant, Dr. Robbins. I then made an elliptical incision over the old scar. The old scar was removed. The incision was carried down to the fascia. The fascia was incised in midline fashion. This was carried down to the rectus muscle. The rectus muscle was in midline fashion. The peritoneal cavity entered. At this point, a Mobius skin retractor was placed. The pelvis and uterus was inspected. An anterior placenta previa was noted with the placenta bulging out of the lower uterine segment, the lower uterine segment being extremely thin. At this point, a decision was made to make an incision above the lower segment of the uterus. The infant was delivered without disturbing the placenta. The cord was clamped and cut. We then shelved out the placenta after sending cord blood and cord gas. After removing the placenta, the lower segment of the uterus was found to be extremely thin. Careful care was taken to close that lower segment in a series of two separate sutures of #0 Vicryl sutures. At this point, the lower segment of the uterus was packed with a moistened sponge lap and fundal massage as well as Pitocin IV was given. The uterus firmed up nicely. We observed that for approximately 4-5 minutes. I then turned my attention to the fallopian tubes where the fallopian tubes were removed entirely and sent to pathology for final diagnosis. Given that there was no excessive bleeding at this point, a decision was made to proceed with closing the peritoneum as well as the fascia. The peritoneum was closed in a running fashion using #2-0 Vicryl. The fascia closed in two separate segments of #0 Vicryl sutures and the skin was reapproximated in a subcuticular fashion using #3-0 Vicryl on the Juan Jose. Steri-Strips placed. The patient tolerated the procedure well. She will be transferred to recovery room in labor and delivery for monitoring with serial CBCs for bleeding. The patient and her partner were counseled extensively if there is any excessive bleeding or the uterine scar opens, we will proceed with hysterectomy. At this point, she is being sent to recovery room in stable condition. ALFREDO
[2018-04-22] MEDS: IBUPROFEN 800 MG TAB PO PRN ×2 (01:33→15:13)
[2018-04-22 01:51] VITALS: BP 91/51
[2018-04-22 06:51] LABS: HEMATOCRIT 28.3 % (36.0-47.0); HEMOGLOBIN 9.2 g/dl (12.0-15.5); MEAN CORPUSCULAR HEMOGLOBIN 28.7 pg (27.0-33.0); MEAN CORPUSCULAR HGB CONC 32.5 g/dl (32.0-36.5); MEAN CORPUSCULAR VOLUME 88.2 fl (80.0-96.0); PLATELET COUNT, AUTOMATED 228 10^3/uL (150-450); RED BLOOD COUNT 3.21 10^6/uL (4.00-5.40); WHITE BLOOD COUNT 11.4 10^3/uL (4.0-10.0)
[2018-04-22 06:59] VITALS: BP 100/56
[2018-04-22] MEDS: ACETAMINOPHEN TAB 650MG DOSE (2X325MG) PO PRN (07:09)
[2018-04-22] MEDS: BUPRENORPHINE/NALOXONE 8-2MG SUBLINGUAL TABLET(SUBOXONE) SL SCH ×2 (08:54→21:05)
[2018-04-22] MEDS: DOCUSATE SODIUM 100 MG CAP PO SCH ×2 (08:54→21:05)
[2018-04-22] MEDS: PRENATAL VITAMINS CHEWABLE TABLET PO SCH (08:54)
[2018-04-22 18:00] VITALS: BP 105/51
[2018-04-23] MEDS: IBUPROFEN 800 MG TAB PO PRN (02:15)
[2018-04-23 05:49] VITALS: BP 86/47
[2018-04-23] MEDS ORDERED: IBUP-1114 PO (07:04)
[2018-04-23] MEDS ORDERED: MAPA500T2 PO (07:04)
--- NOTE | 2018-04-23 07:26 | DSES ---
DATE OF ADMISSION: 04/20/2018 DATE OF DISCHARGE: 04/23/2018 DISCHARGE DIAGNOSIS: Repeat section with bilateral tubal ligation complicated by placenta previa and placenta accreta. SURGEON: Dr. Dixon Linda. COMMERCIAL ENERGY RATER: Dr. Wagner Robbins. HISTORY: Dana is a 37-year-old 4, para 3-0-1-3 now. She was admitted for repeat section complicated by placenta previa. Her surgery was complicated by placenta accreta. She had estimated blood loss of 840 mL. Delivered a live male 6 pounds 14 ounces, weighing 3130 grams. Her postoperative course has been complicated by anemia related to and surgery. She received 2 units of red packed cells and has been doing fine. Her pain has been controlled with oral pain medications. She has been out of bed for self care, abhishek care, visit her in the NICU. She is voiding without difficulty, passing flatus. She denies headaches, dizziness and palpitations. OBJECTIVE: Temperature 97.5, pulse 75, respirations 16, BP is 86/47 this morning. She is alert and oriented times three. Breasts: Soft, nontender. Abdomen: Fundus firm at U. Incision dressing is applied and it is intact. There is no drainage noted. Perineum is intact. Lochia rubra scant. Bilateral lower extremities with +1 edema. She is tolerating a regular diet, oral fluids. PLAN: Discharge the patient home today. She is to follow up at [facility] for a 2-week incision check and an 8-week visit with Dr. Linda. She is to continue her oral pain medications. I did review discharge instructions that include breast care, incision care, abhishek care, pelvic rest and activity restrictions, mastitis symptoms, other danger signs to report and access to her provider. The patient and her partner have had all their questions answered and do request discharge home today. edited: 04/26/2018 0730 tkf MTDD
[2018-04-23] MEDS: DOCUSATE SODIUM 100 MG CAP PO SCH (08:59)
[2018-04-23] MEDS: BUPRENORPHINE/NALOXONE 8-2MG SUBLINGUAL TABLET(SUBOXONE) SL SCH (08:59)
[2018-04-23] MEDS: PRENATAL VITAMINS CHEWABLE TABLET PO SCH (08:59)
== END 2018-04-23 12:30 | disposition home or self-care (01) | DRG 540 ==
LOC: M LDI 07:07 → M OBS 04-21 12:40
PROVIDERS: ADMIT Obstetrics & Gynecology; ATTEND Obstetrics & Gynecology
PROC: 0UB70ZZ Excision of Bilateral Fallopian Tubes, Open Approach (ICD-10-PCS; 2018-04-20)
PROC: 0JB70ZZ Excision of Back Subcutaneous Tissue and Fascia, Open Approach (ICD-10-PCS; 2018-04-20)
PROC: 10D00Z1 Extraction of Products of Conception, Low, Open Approach (ICD-10-PCS; principal; 2018-04-20 09:30)
DX: O44.03 Complete placenta previa NOS or without hemorrhage, third trimester (principal); O34.211 Maternal care for low transverse scar from previous cesarean delivery; Z37.0 Single live birth; Z3A.37 37 weeks gestation of pregnancy; Z30.2 Encounter for sterilization; O43.213 Placenta accreta, third trimester; O09.523 Supervision of elderly multigravida, third trimester

== ENCOUNTER 2020-09-28 10:24 | Inpatient (IN) | payer OTHER ==
[~2020-09-28] VITALS: Ht 160 cm; Wt 96.4 kg
[~2020-09-28 10:24] MED LIST changes: -ACET50TA PO; -DOK100TA PO; +DOK100TA2 PO; +IBUP-1114 PO; +MAPA500T17 PO; +MAPA500T2 PO; +NICO21DI3 TOP; -NICO21PAT TOP
[2020-09-28] MEDS ORDERED: KETOROLAC 30 MG/ML 1ML VIAL IV ONE (11:00)
[2020-09-28 12:30] LABS: VENOUS BASE EXCESS -1.4 (-2.0-2.0); VENOUS HCO3 26.3 MEQ/L (23.0-27.0); VENOUS O2 SATURATION 58.7 % (60.0-80.0); VENOUS PARTIAL PRESSURE O2 33.6 mmHg (30.0-50.0); VENOUS PH 7.275 UNITS (7.330-7.430); VENOUS STANDARD HCO3 22.5 MEQ/L; VENOUS TOTAL CO2 28.1 MEQ/L (24.0-28.0)
[2020-09-28 12:31] LABS: BASO % 0.3 % (0.0-1.0); EOS # 0.1 10^3/uL (0.0-0.5); EOS % 0.9 % (0.0-3.0); HEMATOCRIT 35.8 % (36.0-47.0); HEMOGLOBIN 11.2 g/dl (12.0-15.5); LYMPH # 1.4 10^3/uL (1.5-5.0); LYMPH % 11.9 % (24.0-44.0); MEAN CORPUSCULAR HEMOGLOBIN 27.7 pg (27.0-33.0); MEAN CORPUSCULAR HGB CONC 31.3 g/dl (32.0-36.5); MEAN CORPUSCULAR VOLUME 88.6 fl (80.0-96.0); MONO # 0.6 10^3/uL (0.0-0.8); MONO % 5.1 % (2.0-8.0); NEUTROPHILS # 9.6 10^3/uL (1.5-8.5); NEUTROPHILS % 81.3 % (36.0-66.0); PLATELET COUNT, AUTOMATED 336 10^3/uL (150-450); RED BLOOD COUNT 4.04 10^6/uL (4.00-5.40); WHITE BLOOD COUNT 11.8 10^3/uL (4.0-10.0)
[2020-09-28 12:52] LABS: HCG, SERUM QUALITATIVE NEGATIVE (NEGATIVE)
[2020-09-28 13:01] LABS: ACETAMINOPHEN LEVEL < 2.0 UG/ML (10.0-30.0); ALBUMIN 3.4 GM/DL (3.2-5.2); ALT/SGPT 16 U/L (12-78); BILIRUBIN,DIRECT 0.1 MG/DL (0.0-0.2); BILIRUBIN,TOTAL 0.4 MG/DL (0.2-1.0); BLOOD UREA NITROGEN 13 MG/DL (7-18); CALCIUM LEVEL 8.4 MG/DL (8.5-10.1); CARBON DIOXIDE LEVEL 28 MEQ/L (21-32); CHLORIDE LEVEL 109 MEQ/L (98-107); CPK CREATINE PHOSPHOKINASE 74 U/L (26-192); CREATININE FOR GFR 0.78 MG/DL (0.55-1.30); ETHYL ALCOHOL (ETHANOL) < 0.003 % (0.000-0.010); GLOMERULAR FILTRATION RATE > 60.0 (>60); GLUCOSE, FASTING 94 MG/DL (70-100); POTASSIUM SERUM 3.8 MEQ/L (3.5-5.1); SALICYLATE LEVEL 2.5 MG/DL (5.0-30.0); SODIUM LEVEL 140 MEQ/L (136-145); THYROID STIMULATING HORMONE 0.886 uIU/ML (0.358-3.740); TOTAL PROTEIN 7.2 GM/DL (6.4-8.2)
--- NOTE | 2020-09-28 13:08 | ECGEPIP ---
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
[2020-09-28] MEDS ORDERED: NS 1,000 ML IV ONE (13:25)
--- NOTE | 2020-09-28 13:35 | REP ---
INDICATION: possible injury. COMPARISON: None. TECHNIQUE: AP view FINDINGS: The lungs are clear. The heart is not enlarged. There is no failure or pleural effusion. IMPRESSION: No active process. <Electronically signed by Shon Dunn > 09/28/20 [id number]
--- NOTE | 2020-09-28 13:50 | REP ---
INDICATION: ABDOMINAL PAIN/. COMPARISON: None. TECHNIQUE: Scans were obtained without contrast administration. FINDINGS: Moderate amount of ascites. The gallbladder has been removed. The liver shows normal size and attenuation. There is no evidence of mass or biliary tract dilatation Pancreas shows normal size and attenuation. No evidence of inflammatory change or mass. Spleen normal size and attenuation. Aorta is normal caliber. Adrenal glands not enlarged. Right kidney unremarkable. Left kidney 4 mm midpole calyceal calculus. No hydronephrosis or mass. The uterus unremarkable. Right ovary unremarkable. Left ovary 2 cm cyst. Large and small bowel show normal mucosal pattern and configuration. The bowel gas pattern normal. No adenopathy in the abdomen or pelvis. IMPRESSION: Moderate amount of ascites in the abdomen and pelvis. 4 mm calyceal calculus left kidney. 2 cm cyst left ovary. <Electronically signed by Shon Dunn > 09/28/20 [id number]
[2020-09-28 13:59] LABS: AMPHETAMINES LEVEL URINE NEGATIVE (NEGATIVE); BARBITURATES URINE NEGATIVE (NEGATIVE); BENZODIAZEPINES URINE NEGATIVE (NEGATIVE); CANNABINOIDS URINE NEGATIVE (NEGATIVE); COCAINE METABOLITE URINE NEGATIVE (NEGATIVE); METHADONE URINE NEGATIVE (NEGATIVE); OPIATES URINE NEGATIVE (NEGATIVE); PHENCYCLIDINE URINE NEGATIVE (NEGATIVE)
[2020-09-28 14:41] LABS: RSV AMPLIFICATION NEGATIVE (NEGATIVE)
[2020-09-28] MEDS ORDERED: HOME MED LIST COMPLETE! XX SCH (15:00)
[2020-09-28] MEDS ORDERED: BUPR1FIL SL (15:00)
[2020-09-28 16:06] VITALS: BP 107/65
--- NOTE | 2020-09-28 16:30 | HPEPDOC ---
General Date of Admission 09/28/20 Date of Service: Sep 28, 2020 Chief Complaint The patient is a 39-year-old female admitted with a reason for visit of Possible Overdose. Source: RN/MD History of Present Illness 34-year-old female with history of IV drug abuse on Suboxone, hepatitis C, hip fracture in 2007 was brought into the emergency room for obtundation and lethargy. Patient remains lethargic just opening eyes when I shook her awake and then fell asleep again. No relevant history could be got from patient . All history from chart review and from ED physician and nurse. Apparently EMS was called by patient's boyfried who is also the father of her baby. As per ED nurse, patient's boyfriend reported to EMS that patient uses Libby recreationally. All her veins in both the hands and forearms show fresh track gore. On presentation to ED her RR was 10 but she was able to maintain her airway, Her Bp was soft 90/60. She had a bolus of IVF. She had also complained of abdominal pain to ED staff so She had a CT abd and pelvis in ED which showed Moderate amount of ascites in the abdomen and pelvis. She had denied any fall or trauma. ABG in ED showed hypercarbic respiratory failure. Patient winced when i palpated her abdomen and said "hurts". Could not clarify any thing more about abdominal pain. She fell right back to sleep. She was admitted for recreational drug overdose with hypercarbic respiratory failure. 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 Social History * Smoker: current smoker Drugs: IV drug use A-FIB/CHADSVASC A-FIB History Current/History of A-Fib/PAF?: No Review of Systems Gastrointestinal: Reports: Abdominal Pain; Denies: Vomiting, Diarrhea, Other Symptoms Other systems Review of systems could not be done as patient is lethargic. Physical Examination General Exam: Positive: No Acute Distress, Other Eye Exam: Positive: Other Eye Symptoms ENT Exam: Positive: Atraumatic, Nares Patent; Negative: Mucous membr. moist/pink, Pharyngeal Edema Neck Exam: Positive: Supple; Negative: JVD, thyromegaly Chest Exam: Positive: Clear to auscultation, Normal air movement Heart Exam: Positive: Rate Normal, Regular Rhythm, Normal S1, Normal S2; Negative: Gallops, Murmurs, Rubs Telemetry: Positive: No significant arrhythmia Abdomen Exam: Positive: Normal bowel sounds, Soft, Tenderness Extremity Exam: Negative: Clubbing, Cyanosis, Edema Skin Exam: Positive: Other skin issue (track gore in both the upper extremities. Bruise on the left back of chest) Vital Signs Vital Signs Date Time Temp Pulse Resp B/P (MAP) Pulse Ox O2 Delivery O2 Flow Rate FiO2 09/28/20 13:15 96/51 (66) 09/28/20 13:09 66 100 09/28/20 10:33 98.1 10 Laboratory Data Labs 24H Laboratory Tests 2 09/28/20 12:17: Blood Gas Bicarbonate Standard 22.5, Venous Blood pH 7.275L, Venous Blood Partial Pressure CO2 58.0H, Venous Blood Partial Pressure O2 33.6, Venous Blood Total Carbon Dioxide 28.1H, Venous Blood HCO3 26.3, Venous Blood Oxygen Saturation 58.7L, Venous Blood Base Excess -1.4, Anion Gap 3L, Glomerular Filtration Rate > 60.0, Lactic Acid Level 1.2, Calcium Level 8.4L, Total Bilirubin 0.4, Direct Bilirubin 0.1, Aspartate Amino Transf (AST/SGOT) 14, Alanine Aminotransferase (ALT/SGPT) 16, Alkaline Phosphatase 84, Total Creatine Kinase 74, Total Protein 7.2, Albumin 3.4, Albumin/Globulin Ratio 0.9L, Thyroid Stimulating Hormone (TSH) 0.886, Human Chorionic Gonadotropin, Qual NEGATIVE, Salicylates Level 2.5L, Acetaminophen Level < 2.0L, Ethyl Alcohol Level < 0.003 09/28/20 12:18: Immature Granulocyte % (Auto) 0.5, Neutrophils (%) (Auto) 81.3H, Lymphocytes (%) (Auto) 11.9L, Monocytes (%) (Auto) 5.1, Eosinophils (%) (Auto) 0.9, Basophils (%) (Auto) 0.3, Neutrophils # (Auto) 9.6H, Lymphocytes # (Auto) 1.4L, Monocytes # (Auto) 0.6, Eosinophils # (Auto) 0.1, Basophils # (Auto) 0.0, Nucleated Red Blood Cells % (auto) 0.0 09/28/20 13:18: Urine Opiates Screen NEGATIVE, Urine Methadone Screen NEGATIVE, Urine Barbiturates Screen NEGATIVE, Urine Phencyclidine Screen NEGATIVE, Urine Amphetamines Screen NEGATIVE, Urine Benzodiazepines Screen NEGATIVE, Urine Cocaine Metabolite Screen NEGATIVE, Urine Cannabinoids Screen NEGATIVE 09/28/20 14:00: CBC/BMP Laboratory Tests 09/28/20 12:17 09/28/20 12:18 Assessment/Plan 34-year-old female with history of IV drug abuse on Suboxone, hepatitis C, hip fracture in 2007 was brought into the emergency room for obtundation and lethargy. Patient remains lethargic just opening eyes when I shook her awake and then fell asleep again. No relevant history could be got from patient . All history from chart review and from ED physician and nurse. Apparently EMS was called by patient's boyfried who is also the father of her baby. As per ED nurse, patient's boyfriend reported to EMS that patient uses Libby recreationally. All her veins in both the hands and forearms show fresh track gore. On presentation to ED her RR was 10 but she was able to maintain her airway, Her Bp was soft 90/60. She had a bolus of IVF. She had also complained of abdominal pain to ED staff so She had a CT abd and pelvis in ED which showed Moderate amount of ascites in the abdomen and pelvis. She had denied any fall or trauma. ABG in ED showed hypercarbic respiratory failure. Patient winced when i palpated her abdomen and said "hurts". Could not clarify any thing more about abdominal pain. She fell right back to sleep. She was admitted for recreational drug overdose with hypercarbic respiratory failure. Acute respiratory failure with hypercarbia due to drug overdose, has new track gore. Utox negative. Likely using synthetic drugs not picked up in ED tox screening. Drug overdose recreational continuous pulse oximetry Abdominal pain and ascites the generalized abdominal pain could be certainly musculoskeletal However in view of the ascites will give Ceftriaxone as may have SBP. History of Hepatitis c now has ascites in CT abdomen, though liver contour is not abnormal still may have early cirrhosis of liver Will need a diagnostic tap. H/o IV opiates use On suboxone will hold for now as lethargic. Plan / VTE VTE Prophylaxis Ordered?: Yes VICKY MULLINS MD Sep 28, 2020 14:18
[2020-09-28] MEDS: cefTRIAXone SOD 1 GM in D5W MINI-BAG PLUS 50 ML IV SCH (16:41)
[2020-09-28] MEDS: PANTOPRAZOLE 40MG VIAL (C9113 PER 1) IV SCH (16:41)
[2020-09-28 18:00] VITALS: O2SAT 98
[2020-09-28 18:50] VITALS: BP 101/60
--- NOTE | 2020-09-28 18:54 | ROOPDOC ---
[facility] Report Of Operation Report of Operation DATE OF PROCEDURE: 09/28/20 PROCEDURE PERFORMED: Right IJ central venous catheter insertion. PREPROCEDURE DIAGNOSES: Sepsis, no IV access. POSTPROCEDURE DIAGNOSES: Sepsis, no IV access. SURGEON: Dr Joseph MD ANESTHESIA: Local 1% lidocaine 5 cc. ESTIMATED BLOOD LOSS: Approximately 3 mL. COMPLICATIONS: none. PROCEDURE NOTE: . After consent was obtained from her father, a time out was performed. My hands were washed immediately prior to the procedure. I wore a surgical cap, mask with protective eyewear, full gown and sterile gloves throughout the procedure. The patient was placed in Trendelenburg position. RIGHT neck region was prepped using chlorhexidine scrub and draped in sterile fashion using a full drape and sterile probe cover and sterile gel employed. The medial and lateral heads of the sternocleidomastoid muscle were identified as was the carotid pulse. The Internal Jugular vein was identified using the ultrasound. Anesthesia was achieved over the vein using 1% lidocaine. Using real-time out of plane guidance, the introducer needle was inserted into the Internal Jugular vein under direct ultrasound visualization. Venous blood was withdrawn. The syringe was removed and a guidewire was advanced into the introducer needle. The guidewire was visualized in the Internal Jugular Vein by ultrasound. A small incision was made at the skin surface with a scalpel and the introducer needle was exchanged for a dilator over the guidewire. After appropriate dilation was obtained, the dilator was exchanged over the wire for a triple central venous catheter. The wire was removed and the catheter was sutured in place at 15 cm. A sterile sorbaview shield was placed over the catheter at the insertion site. The patient tolerated the procedure without any hemodynamic compromise. At time of procedure completion, all ports aspirated and flushed properly. Post-procedure chest x-ray showed line in appropriate position and no PTX. Estimated blood loss is 3. SHAKA CASTANON MD Sep 28, 2020 18:54
[2020-09-28 20:00] VITALS: BP 103/67
--- NOTE | 2020-09-28 20:06 | REPVR ---
PROCEDURE INFORMATION: Exam: XR Chest Exam date and time: 09/28/2020 7:05 PM Age: 39 years old Clinical indication: Other: Confirm central line placement, R/O pneumothorax TECHNIQUE: Imaging protocol: XR of the chest. Views: 1 view. COMPARISON: CR Chest, 2 view PA, Lat 08/02/2014 12:00 PM FINDINGS: Tubes, catheters and devices: Interval placement of a right internal jugular central line to the distal superior vena cava. Lungs: There is decreased inflation of the lungs. No focal infiltrates. Pleural spaces: Unremarkable. No pleural effusion. No pneumothorax. Heart/Mediastinum: Unremarkable. No cardiomegaly. Bones/joints: Unremarkable. IMPRESSION: 1. Right internal jugular central line to the distal superior vena cava. No pneumothorax. 2. Otherwise negative poor inspiratory chest. Electronically signed by: Julien Mota On 09/28/2020 20:06:27 PM
[2020-09-28 22:21] VITALS: BP 97/58
[2020-09-28] MEDS: SODIUM CHLORIDE 0.9% INJ 10 ML SYR IV SCH (22:28)
[2020-09-28] MEDS: SODIUM CHLORIDE 0.9% INJ 10 ML SYR IV PRN ×2 (22:28→22:29)
[2020-09-29] MEDS: ACETAMINOPHEN TAB 650MG DOSE (2X325MG) PO PRN (05:02)
[2020-09-29] MEDS: SODIUM CHLORIDE 0.9% INJ 10 ML SYR IV SCH ×3 (05:02→20:31)
[2020-09-29 06:00] VITALS: BP 109/59
[2020-09-29 06:37] LABS: BASO % 0.3 % (0.0-1.0); EOS % 0.4 % (0.0-3.0); HEMATOCRIT 27.8 % (36.0-47.0); LYMPH # 1.7 10^3/uL (1.5-5.0); LYMPH % 18.4 % (24.0-44.0); MEAN CORPUSCULAR HEMOGLOBIN 27.6 pg (27.0-33.0); MEAN CORPUSCULAR HGB CONC 31.3 g/dl (32.0-36.5); MEAN CORPUSCULAR VOLUME 88.3 fl (80.0-96.0); MONO # 0.6 10^3/uL (0.0-0.8); MONO % 6.4 % (2.0-8.0); PLATELET COUNT, AUTOMATED 268 10^3/uL (150-450); RED BLOOD COUNT 3.15 10^6/uL (4.00-5.40); WHITE BLOOD COUNT 9.4 10^3/uL (4.0-10.0)
[2020-09-29 06:43] LABS: HEMOGLOBIN 8.7 g/dl (12.0-15.5)
[2020-09-29 07:00] LABS: BLOOD UREA NITROGEN 10 MG/DL (7-18); CARBON DIOXIDE LEVEL 27 MEQ/L (21-32); CHLORIDE LEVEL 109 MEQ/L (98-107); CREATININE FOR GFR 0.51 MG/DL (0.55-1.30); GLOMERULAR FILTRATION RATE > 60.0 (>60); GLUCOSE, FASTING 90 MG/DL (70-100); POTASSIUM SERUM 3.9 MEQ/L (3.5-5.1); SODIUM LEVEL 140 MEQ/L (136-145)
[2020-09-29 09:00] VITALS: O2SAT 98
[2020-09-29] MEDS: BUPRENORPHINE/NALOXONE 8-2MG SUBLINGUAL TABLET(SUBOXONE) SL SCH ×3 (09:00→20:30)
[2020-09-29] MEDS: ENOXAPARIN 40MG/0.4ML SYRINGE (J1650 PER 10MG) SC SCH (09:51)
--- NOTE | 2020-09-29 12:51 | REP ---
INDICATION: trauma. COMPARISON: 09/28/2020 TECHNIQUE: Three views of the ribs and PA chest FINDINGS: A central line is in place with the tip in the superior vena cava. The lungs are fully expanded and clear. The heart is not enlarged. There is no failure. No rib fracture is demonstrated. No bone texture abnormality involves the ribs. IMPRESSION: Central line in place with tip in superior vena cava. Lungs clear. No rib abnormality. <Electronically signed by Shon Dunn > 09/29/20 1624
[2020-09-29] MEDS: KETOROLAC 30 MG/ML 1ML VIAL IV PRN (13:30)
[2020-09-29] MEDS: PANTOPRAZOLE 40MG VIAL (C9113 PER 1) IV SCH (13:30)
[2020-09-29] MEDS: cefTRIAXone SOD 1 GM in D5W MINI-BAG PLUS 50 ML IV SCH (13:31)
[2020-09-29 14:00] VITALS: BP 97/58
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
[2020-09-29 20:30] VITALS: BP 104/44
[2020-09-29 22:00] VITALS: BP 94/50
[2020-09-30] MEDS: ACETAMINOPHEN TAB 650MG DOSE (2X325MG) PO PRN (02:16)
[2020-09-30 03:33] VITALS: O2SAT 98
[2020-09-30] MEDS: SODIUM CHLORIDE 0.9% INJ 10 ML SYR IV SCH ×3 (05:14→20:35)
[2020-09-30 06:00] VITALS: BP 90/50
[2020-09-30 06:03] LABS: BASO % 0.3 % (0.0-1.0); EOS % 0.4 % (0.0-3.0); HEMATOCRIT 24.8 % (36.0-47.0); HEMOGLOBIN 7.8 g/dl (12.0-15.5); LYMPH # 1.7 10^3/uL (1.5-5.0); LYMPH % 17.7 % (24.0-44.0); MEAN CORPUSCULAR HEMOGLOBIN 27.9 pg (27.0-33.0); MEAN CORPUSCULAR HGB CONC 31.5 g/dl (32.0-36.5); MEAN CORPUSCULAR VOLUME 88.6 fl (80.0-96.0); MONO # 0.8 10^3/uL (0.0-0.8); MONO % 8.4 % (2.0-8.0); NEUTROPHILS % 72.9 % (36.0-66.0); PLATELET COUNT, AUTOMATED 261 10^3/uL (150-450); WHITE BLOOD COUNT 9.6 10^3/uL (4.0-10.0)
[2020-09-30 06:27] LABS: BLOOD UREA NITROGEN 15 MG/DL (7-18); CALCIUM LEVEL 7.8 MG/DL (8.5-10.1); CARBON DIOXIDE LEVEL 27 MEQ/L (21-32); CHLORIDE LEVEL 109 MEQ/L (98-107); CREATININE FOR GFR 0.51 MG/DL (0.55-1.30); GLOMERULAR FILTRATION RATE > 60.0 (>60); GLUCOSE, FASTING 93 MG/DL (70-100); LDH LACTATE DEHYDROGENASE 162 U/L (84-246); POTASSIUM SERUM 4.2 MEQ/L (3.5-5.1); SODIUM LEVEL 139 MEQ/L (136-145)
[2020-09-30 08:03] LABS: HEMATOCRIT 26.2 % (36.0-47.0); HEMOGLOBIN 8.2 g/dl (12.0-15.5); MEAN CORPUSCULAR HEMOGLOBIN 27.7 pg (27.0-33.0); MEAN CORPUSCULAR HGB CONC 31.3 g/dl (32.0-36.5); MEAN CORPUSCULAR VOLUME 88.5 fl (80.0-96.0); PLATELET COUNT, AUTOMATED 258 10^3/uL (150-450); RED BLOOD COUNT 2.96 10^6/uL (4.00-5.40); WHITE BLOOD COUNT 9.5 10^3/uL (4.0-10.0)
[2020-09-30] MEDS ORDERED: NS 1,000 ML IV ONE (08:10)
[2020-09-30] MEDS: BUPRENORPHINE/NALOXONE 8-2MG SUBLINGUAL TABLET(SUBOXONE) SL SCH ×3 (08:15→21:00)
[2020-09-30] MEDS: PANTOPRAZOLE 40MG TAB (PROTONIX) PO SCH (08:29)
[2020-09-30] MEDS: KETOROLAC 30 MG/ML 1ML VIAL IV PRN ×2 (08:29→16:12)
[2020-09-30] MEDS: SODIUM CHLORIDE 0.9% INJ 10 ML SYR IV PRN ×3 (08:29→16:12)
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
[2020-09-30] MEDS: NICOTINE 21MG/24HR 1 EA TRANSDERMAL TD SCH (13:52)
[2020-09-30 14:00] VITALS: BP 99/52
--- NOTE | 2020-09-30 15:30 | REP ---
INDICATION: ascites, h/o hepatitis C. COMPARISON: None. TECHNIQUE: Four quadrant ultrasound to assess for ascites FINDINGS: A very small amount of fluid is seen in Galloway's pouch. IMPRESSION: Insufficient quantity of fluid for paracentesis. <Electronically signed by Maxi Conti > 09/30/20 [id number]
[2020-09-30] MEDS: cefTRIAXone SOD 1 GM in D5W MINI-BAG PLUS 50 ML IV SCH (16:10)
[2020-09-30 20:35] VITALS: BP 92/44
[2020-09-30 22:00] VITALS: BP 99/67
[2020-09-30 23:32] VITALS: O2SAT 99
[2020-10-01] MEDS: SODIUM CHLORIDE 0.9% INJ 10 ML SYR IV SCH ×3 (05:18→21:05)
[2020-10-01] MEDS: ACETAMINOPHEN TAB 650MG DOSE (2X325MG) PO PRN (05:19)
[2020-10-01 06:00] VITALS: BP 100/68
[2020-10-01 07:01] LABS: BASO % 0.4 % (0.0-1.0); EOS # 0.1 10^3/uL (0.0-0.5); EOS % 1.3 % (0.0-3.0); HEMATOCRIT 23.4 % (36.0-47.0); HEMOGLOBIN 7.2 g/dl (12.0-15.5); LYMPH # 1.7 10^3/uL (1.5-5.0); LYMPH % 20.2 % (24.0-44.0); MEAN CORPUSCULAR HEMOGLOBIN 27.6 pg (27.0-33.0); MEAN CORPUSCULAR HGB CONC 30.8 g/dl (32.0-36.5); MEAN CORPUSCULAR VOLUME 89.7 fl (80.0-96.0); MONO # 0.7 10^3/uL (0.0-0.8); NEUTROPHILS % 69.5 % (36.0-66.0); PLATELET COUNT, AUTOMATED 256 10^3/uL (150-450); RED BLOOD COUNT 2.61 10^6/uL (4.00-5.40); WHITE BLOOD COUNT 8.6 10^3/uL (4.0-10.0)
[2020-10-01 07:23] LABS: BLOOD UREA NITROGEN 14 MG/DL (7-18); CALCIUM LEVEL 7.6 MG/DL (8.5-10.1); CARBON DIOXIDE LEVEL 26 MEQ/L (21-32); CHLORIDE LEVEL 113 MEQ/L (98-107); CREATININE FOR GFR 0.56 MG/DL (0.55-1.30); GLOMERULAR FILTRATION RATE > 60.0 (>60); GLUCOSE, FASTING 98 MG/DL (70-100); SODIUM LEVEL 142 MEQ/L (136-145)
[2020-10-01] MEDS: PANTOPRAZOLE 40MG TAB (PROTONIX) PO SCH (08:06)
[2020-10-01] MEDS: NICOTINE 21MG/24HR 1 EA TRANSDERMAL TD SCH (08:06)
[2020-10-01] MEDS: BUPRENORPHINE/NALOXONE 8-2MG SUBLINGUAL TABLET(SUBOXONE) SL SCH ×3 (08:46→21:04)
[2020-10-01 09:43] LABS: FERRITIN 118 NG/ML (8-252); IRON (FE) 34 UG/DL (50-170); PERCENT SATURATION 16.7 % (13.2-45.0); TOTAL IRON BINDING CAPACITY 204 UG/DL (250-450)
[2020-10-01 09:50] LABS: VITAMIN B12 LEVEL 333 PG/ML (247-911)
[2020-10-01 09:51] LABS: FOLATE 5.1 NG/ML (>5.4)
[2020-10-01 14:00] VITALS: BP 99/63
[2020-10-01] MEDS: cefTRIAXone SOD 1 GM in D5W MINI-BAG PLUS 50 ML IV SCH (14:10)
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
[2020-10-01] MEDS: CIPROFLOXACIN 500MG TABLET PO SCH (16:42)
[2020-10-01 17:33] LABS: HEPATITIS B SURFACE ANTIBODY POSITIVE (POSITIVE); HEPATITIS B SURFACE ANTIGEN NEGATIVE (NEGATIVE)
[2020-10-01] MEDS: DOCUSATE SODIUM 100MG CAPSULE PO SCH (21:00)
[2020-10-01 22:00] VITALS: BP 98/54
[2020-10-02] VITALS (8 sets, daily range): BP systolic 87–122; BP diastolic 49–68; O2SAT 98
[2020-10-02] MEDS ORDERED: MIRALAX *UNIT DOSE* 17GM PACKET PO PRN (01:05)
[2020-10-02] MEDS ORDERED: MOM 30ML SUSPENSION UDC PO PRN (01:05)
[2020-10-02] MEDS: CIPROFLOXACIN 500MG TABLET PO SCH ×2 (05:07→17:55)
[2020-10-02] MEDS: SODIUM CHLORIDE 0.9% INJ 10 ML SYR IV SCH ×3 (05:07→20:39)
[2020-10-02 07:08] LABS: BASO % 0.4 % (0.0-1.0); EOS # 0.1 10^3/uL (0.0-0.5); EOS % 1.6 % (0.0-3.0); HEMATOCRIT 22.4 % (36.0-47.0); HEMOGLOBIN 7.1 g/dl (12.0-15.5); LYMPH % 23.6 % (24.0-44.0); MEAN CORPUSCULAR HEMOGLOBIN 28.3 pg (27.0-33.0); MEAN CORPUSCULAR HGB CONC 31.7 g/dl (32.0-36.5); MEAN CORPUSCULAR VOLUME 89.2 fl (80.0-96.0); MONO # 0.8 10^3/uL (0.0-0.8); MONO % 8.9 % (2.0-8.0); NEUTROPHILS # 5.5 10^3/uL (1.5-8.5); PLATELET COUNT, AUTOMATED 296 10^3/uL (150-450); RED BLOOD COUNT 2.51 10^6/uL (4.00-5.40); WHITE BLOOD COUNT 8.4 10^3/uL (4.0-10.0)
[2020-10-02 07:36] LABS: BLOOD UREA NITROGEN 10 MG/DL (7-18); CALCIUM LEVEL 7.8 MG/DL (8.5-10.1); CARBON DIOXIDE LEVEL 28 MEQ/L (21-32); CHLORIDE LEVEL 110 MEQ/L (98-107); CREATININE FOR GFR 0.46 MG/DL (0.55-1.30); GLOMERULAR FILTRATION RATE > 60.0 (>60); GLUCOSE, FASTING 88 MG/DL (70-100); SODIUM LEVEL 140 MEQ/L (136-145)
[2020-10-02] MEDS ORDERED: IRON SUCROSE 100MG 5ML VIAL (J1756 PER 1MG) IV SCH (09:00)
[2020-10-02] MEDS: IRON SUCROSE 250 MG in NS 237.5 ML IV SCH (10:36)
[2020-10-02] MEDS: ENOXAPARIN 40MG/0.4ML SYRINGE (J1650 PER 10MG) SC SCH (10:36)
[2020-10-02] MEDS: BUPRENORPHINE/NALOXONE 8-2MG SUBLINGUAL TABLET(SUBOXONE) SL SCH ×3 (10:36→20:38)
[2020-10-02] MEDS: NICOTINE 21MG/24HR 1 EA TRANSDERMAL TD SCH (10:36)
[2020-10-02] MEDS: PANTOPRAZOLE 40MG TAB (PROTONIX) PO SCH (10:37)
[2020-10-02] MEDS: DOCUSATE SODIUM 100MG CAPSULE PO SCH ×2 (10:37→20:38)
[2020-10-02] MEDS: FOLIC ACID 1 MG TAB PO SCH (10:37)
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
[2020-10-02] MEDS ORDERED: ISOVUE-370 76% 100ML VIAL As Ordered ONE (15:43)
[2020-10-02 18:13] LABS: BASO % 0.5 % (0.0-1.0); EOS # 0.1 10^3/uL (0.0-0.5); EOS % 1.1 % (0.0-3.0); HEMATOCRIT 26.6 % (36.0-47.0); HEMOGLOBIN 8.4 g/dl (12.0-15.5); MEAN CORPUSCULAR HEMOGLOBIN 28.1 pg (27.0-33.0); MEAN CORPUSCULAR HGB CONC 31.6 g/dl (32.0-36.5); MONO # 0.9 10^3/uL (0.0-0.8); MONO % 9.9 % (2.0-8.0); NEUTROPHILS # 5.8 10^3/uL (1.5-8.5); NEUTROPHILS % 64.7 % (36.0-66.0); PLATELET COUNT, AUTOMATED 313 10^3/uL (150-450); RED BLOOD COUNT 2.99 10^6/uL (4.00-5.40); WHITE BLOOD COUNT 8.9 10^3/uL (4.0-10.0)
--- NOTE | 2020-10-02 18:22 | REPVR ---
PROCEDURE INFORMATION: Exam: CT Abdomen And Pelvis With Contrast Exam date and time: 10/02/2020 5:22 PM Age: 39 years old Clinical indication: Other: Assess subcapsular liver hematoma? TECHNIQUE: Imaging protocol: Computed tomography of the abdomen and pelvis with contrast. Radiation optimization: All CT scans at this facility use at least one of these dose optimization techniques: automated exposure control; mA and/or kV adjustment per patient size (includes targeted exams where dose is matched to clinical indication); or iterative reconstruction. Contrast material: ISOVUE 370; Contrast volume: 100 ml; Contrast route: INTRAVENOUS (IV); COMPARISON: CT ABD PELVIS W/O CONTRAST 09/28/2020 12:57 PM FINDINGS: Lungs: Bibasilar atelectasis. Liver: Normal. No mass. Gallbladder and bile ducts: There has been a cholecystectomy. Pancreas: Normal. No ductal dilation. Spleen: Patchy irregular intra splenic lucencies demonstrated. Finding may be related to splenic infarcts. Other etiologies including infection and trauma in this patient with no reported history of trauma not excluded. Adrenal glands: Normal. No mass. Kidneys and ureters: Nonobstructive left renal calculus. Stomach and bowel: There is increased feces throughout the colon consistent with constipation. Appendix: No evidence of appendicitis. Intraperitoneal space: There is a small amount of free intraperitoneal fluid present. Vasculature: Unremarkable. No abdominal aortic aneurysm. Lymph nodes: Unremarkable. No enlarged lymph nodes. Urinary bladder: Unremarkable as visualized. Reproductive: Unremarkable as visualized. Bones/joints: Unremarkable. No acute fracture. Soft tissues: There is mild soft tissue edema demonstrated in the abdominal wall, flanks and buttock regions consistent with anasarca. There is a small umbilical hernia. There is no evidence of incarceration. Small gas collections in the subcutaneous fat in the anterior abdomen in the left lower quadrant likely iatrogenic. IMPRESSION: 1. There is a small amount of free intraperitoneal fluid present. 2. There has been a cholecystectomy. 3. Patchy irregular intra splenic lucencies demonstrated. Finding may be related to splenic infarcts. Other etiologies including infection and trauma in this patient with no reported history of trauma not excluded. 4. Nonobstructive left renal calculus. 5. There is increased feces throughout the colon consistent with constipation. 6. Anasarca. Electronically signed by: Valerio Peters On 10/02/2020 18:21:45 PM
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
[2020-10-03 06:00] VITALS: BP 84/32
[2020-10-03] MEDS: CIPROFLOXACIN 500MG TABLET PO SCH (06:12)
[2020-10-03] MEDS: SODIUM CHLORIDE 0.9% INJ 10 ML SYR IV SCH ×2 (06:13→14:00)
[2020-10-03 06:52] LABS: BASO # 0.1 10^3/uL (0.0-0.2); BASO % 0.8 % (0.0-1.0); EOS # 0.2 10^3/uL (0.0-0.5); EOS % 1.7 % (0.0-3.0); HEMATOCRIT 27.1 % (36.0-47.0); HEMOGLOBIN 8.4 g/dl (12.0-15.5); LYMPH # 1.9 10^3/uL (1.5-5.0); LYMPH % 20.5 % (24.0-44.0); MEAN CORPUSCULAR HEMOGLOBIN 27.6 pg (27.0-33.0); MEAN CORPUSCULAR VOLUME 89.1 fl (80.0-96.0); MONO # 0.9 10^3/uL (0.0-0.8); MONO % 9.6 % (2.0-8.0); NEUTROPHILS # 6.1 10^3/uL (1.5-8.5); NEUTROPHILS % 66.3 % (36.0-66.0); PLATELET COUNT, AUTOMATED 316 10^3/uL (150-450); RED BLOOD COUNT 3.04 10^6/uL (4.00-5.40); WHITE BLOOD COUNT 9.2 10^3/uL (4.0-10.0)
[2020-10-03 07:10] LABS: BLOOD UREA NITROGEN 12 MG/DL (7-18); CALCIUM LEVEL 7.6 MG/DL (8.5-10.1); CARBON DIOXIDE LEVEL 28 MEQ/L (21-32); CHLORIDE LEVEL 110 MEQ/L (98-107); CREATININE FOR GFR 0.59 MG/DL (0.55-1.30); GLOMERULAR FILTRATION RATE > 60.0 (>60); GLUCOSE, FASTING 97 MG/DL (70-100); POTASSIUM SERUM 3.9 MEQ/L (3.5-5.1); SODIUM LEVEL 141 MEQ/L (136-145)
[2020-10-03 08:10] VITALS: BP 94/56
[2020-10-03] MEDS: DOCUSATE SODIUM 100MG CAPSULE PO SCH (08:25)
[2020-10-03] MEDS: FOLIC ACID 1 MG TAB PO SCH (08:25)
[2020-10-03] MEDS: PANTOPRAZOLE 40MG TAB (PROTONIX) PO SCH (08:25)
[2020-10-03] MEDS: NICOTINE 21MG/24HR 1 EA TRANSDERMAL TD SCH (08:25)
[2020-10-03] MEDS: BUPRENORPHINE/NALOXONE 8-2MG SUBLINGUAL TABLET(SUBOXONE) SL SCH (08:26)
[2020-10-03] MEDS: IRON SUCROSE 250 MG in NS 237.5 ML IV SCH (08:26)
[2020-10-03] MEDS: ENOXAPARIN 40MG/0.4ML SYRINGE (J1650 PER 10MG) SC SCH (08:26)
[2020-10-03] MEDS ORDERED: CIPR-249 PO (13:49)
[2020-10-03] MEDS ORDERED: ACET1TAB55 PO (13:49)
[2020-10-03] MEDS ORDERED: FOLI1TAB11 PO (13:49)
[2020-10-03] MEDS ORDERED: PANT40TA29 PO (13:49)
[2020-10-03 14:00] VITALS: BP 96/57
== END 2020-10-03 16:17 | disposition home or self-care (01) | DRG 812 ==
LOC: M ED 10:24 → EEVIPCON 10:25 → M ED INP 10:25 → UNDOADMOB 14:42 → ENRESERV 15:23 → M MSPAV 16:31 → OBSVTOIN 10-01 13:21
PROVIDERS: ADMIT Internal Medicine Nephrology; ATTEND Family Medicine
PROC: 02HV33Z Insertion of Infusion Device into Superior Vena Cava, Percutaneous Approach (ICD-10-PCS; principal; 2020-09-28)
DX: T43.641A Poisoning by ecstasy, accidental (unintentional), initial encounter (principal); J96.02 Acute respiratory failure with hypercapnia; K65.2 Spontaneous bacterial peritonitis; R18.8 Other ascites; K74.60 Unspecified cirrhosis of liver; D64.9 Anemia, unspecified; B18.2 Chronic viral hepatitis C

== ENCOUNTER 2020-12-16 10:02 | Emergency (ER) | payer OTHER ==
[~2020-12-16] VITALS: Ht 160 cm; Wt 87.3 kg
[~2020-12-16 10:02] MED LIST changes: +ACET1TAB55 PO; +BUPR1FIL SL; +CIPR-249 PO; +FOLI1TAB11 PO; +PANT40TA29 PO
--- OUTSIDE RECORDS SUMMARY | 2020-12-16 10:08 | CCD | Continuity of Care Document ---
Author Author Dana VANEGAS M.D. Organization Unknown Address [address] [place] [address] Phone [phone] Problems Description No Information Available Social History Type Date Description Comments Sex Unknown Allergies, Adverse Reactions, Alerts Description No Information Available Medications Description No Information Available Immunizations Description No Information Available Vital Signs Description No Information Available Results Description No Information Available Procedures Date Code Description Status 09/28/2020 98445 Ultrasound Guidance For Vascular Access Requiring Ultrasound Eval Completed 09/28/2020 18166 Insertion Of Non-Vern neled Centrally Inserted Central Venous Carmen Completed Medical Devices Description No Information Available Encounters Description No Information Available Assessments Date Code Description Provider 09/28/2020 A41.9 Sepsis, unspecified organism Marcella Wolf M.D. Plan of Treatment No Information Available Functional Status Description No Information Available Mental Status Description No Information Available Referrals Description No Information Available
--- OUTSIDE RECORDS SUMMARY | 2020-12-16 10:09 | CCD ---
Author Author [facility] Organization [facility] Address Unknown Phone Unavailable Care Team Providers Care Clock And Watch Hands Dipper Name Role Phone Macie Whitehead MD Unavailable Unavailable Macie Whitehead MD Unavailable Unavailable Macie Whitehead MD Unavailable Unavailable Macie Whitehead MD Unavailable Unavailable Macie Whitehead MD Unavailable Unavailable Macie Whitehead MD Unavailable Unavailable Macie Whitehead MD Unavailable Unavailable Macie Whitehead MD Unavailable Unavailable Macie Whitehead MD Unavailable Unavailable Macie Whitehead MD Unavailable Unavailable Macie Whitehead MD Unavailable Unavailable Macie Whitehead MD Unavailable Unavailable Macie Whitehead MD Unavailable Unavailable Macie Whitehead MD Unavailable Unavailable Macie Whitehead MD Unavailable Unavailable Macie Whitehead MD Unavailable Unavailable Macie Whitehead MD Unavailable Unavailable Macie Whitehead MD Unavailable Unavailable aMcie Whitehead MD Unavailable Unavailable Macie Whitehead MD Unavailable Unavailable Macie Whitehead MD Unavailable Unavailable Macie Whitehead MD Unavailable Unavailable Macie Whitehead MD Unavailable Unavailable Macie Whitehead MD Unavailable Unavailable Macie Whitehead MD Unavailable Unavailable Macie Whitehead MD Unavailable Unavailable Macie Whitehead MD Unavailable Unavailable Macie Whitehead MD Unavailable Unavailable Macie Whitehead MD Unavailable Unavailable Macie Whitehead MD Unavailable Unavailable Macie Whitehead MD Unavailable Unavailable Macie Whitehead MD Unavailable Unavailable Macie Whitehead MD Unavailable Unavailable Macie Whitehead MD Unavailable Unavailable Macie Whitehead MD Unavailable Unavailable Macie Whitehead MD Unavailable Unavailable Macie Whitehead MD Unavailable Unavailable Macie Whitehead MD Unavailable Unavailable Macie Whitehead MD Unavailable Unavailable Macie Whitehead MD Unavailable Unavailable Macie Whitehead MD Unavailable Unavailable Macie Whitehead MD Unavailable Unavailable Macie Whitehead MD Unavailable Unavailable Macie Whitehead MD Unavailable Unavailable Macie Whitehead MD Unavailable Unavailable Macie Whitehead MD Unavailable Unavailable Macie Whitehead MD Unavailable Unavailable Macie Whitehead MD Unavailable Unavailable Macie Whitehead MD Unavailable Unavailable Macie Whitehead MD Unavailable Unavailable Macie Whitehead MD Unavailable Unavailable Macie Whitehead MD Unavailable Unavailable Macie Whitehead MD Unavailable Unavailable Macie Whitehead MD Unavailable Unavailable Macie Whitehead MD Unavailable Unavailable Macie Whitehead MD Unavailable Unavailable Macie Whitehead MD Unavailable Unavailable Macie Whitehead MD Unavailable Unavailable Macie Whitehead MD Unavailable Unavailable Macie Whitehead MD Unavailable Unavailable Macie Whitehead MD Unavailable Unavailable Macie Whitehead MD Unavailable Unavailable Macie Whitehead MD Unavailable Unavailable Macie Whitehead MD Unavailable Unavailable Macie Whitehead MD Unavailable Unavailable Macie Whitehead MD Unavailable Unavailable Macie Whitehead MD Unavailable Unavailable Macie Whitehead MD Unavailable Unavailable Macie Whitehead MD Unavailable Unavailable Macie Whitehead MD Unavailable Unavailable Macie Whitehead MD Unavailable Unavailable Macie Whitehead MD Unavailable Unavailable Macie Whitehead MD Unavailable Unavailable Macie Whitehead MD Unavailable Unavailable Macie Whitehead MD Unavailable Unavailable Macie Whitehead MD Unavailable Unavailable Macie Whitehead MD Unavailable Unavailable Macie Whitehead MD Unavailable Unavailable Macie Whitehead MD Unavailable Unavailable Macie Whitehead MD Unavailable Unavailable Macie Whitehead MD Unavailable Unavailable Macie Whitehead MD Unavailable Unavailable Macie Whitehead MD Unavailable Unavailable Macie Whitehead MD Unavailable Unavailable Macie Whitehead MD Unavailable Unavailable Macie Whitehead MD Unavailable Unavailable Macie Whitehead MD Unavailable Unavailable Macie Whitehead MD Unavailable Unavailable Macie Whitehead MD Unavailable Unavailable Macie Whitehead MD Unavailable Unavailable Macie Whitehead MD Unavailable Unavailable Macie Whitehead MD Unavailable Unavailable Macie Whitehead MD Unavailable Unavailable Macie Whitehead MD Unavailable Unavailable Macie Whitehead MD Unavailable Unavailable Macie Whitehead MD Unavailable Unavailable Macie Whitehead MD Unavailable Unavailable Macie Whitehead MD Unavailable Unavailable Macie Whitehead MD Unavailable Unavailable Macie Whitehead MD Unavailable Unavailable Macie Whitehead MD Unavailable Unavailable Macie Whitehead MD Unavailable Unavailable Macie Whitehead MD Unavailable Unavailable Macie Whitehead MD Unavailable Unavailable Macie Whitehead MD Unavailable Unavailable Macie Whitehead MD Unavailable Unavailable Macie Whitehead MD Unavailable Unavailable Macie Whitehead MD Unavailable Unavailable Macie Whitehead MD Unavailable Unavailable Macie Whitehead MD Unavailable Unavailable Macie Whitheead MD Unavailable Unavailable Macie Whitehead MD Unavailable Unavailable Macie Whitehead MD Unavailable Unavailable Macie Whitehead MD Unavailable Unavailable Macie Whitehead MD Unavailable Unavailable Macie Whitehead MD Unavailable Unavailable Macie Whitehead MD Unavailable Unavailable Macie Whitehead MD Unavailable Unavailable Macie Whitehead MD Unavailable Unavailable Macie Whitehead MD Unavailable Unavailable Macie Whitehead MD Unavailable Unavailable Macie Whitehead MD Unavailable Unavailable Macie Whitehead MD Unavailable Unavailable Macie Whitehead MD Unavailable Unavailable Macie Whitehead MD Unavailable Unavailable Macie Whitehead MD Unavailable Unavailable Macie Whitehead MD Unavailable Unavailable Macie Whitehead MD Unavailable Unavailable Macie Whitehead MD Unavailable Unavailable Macie Whitehead MD Unavailable Unavailable Macie Whitehead MD Unavailable Unavailable Macie Whitehead MD Unavailable Unavailable Macie Whitehead MD Unavailable Unavailable Macie Whitehead MD Unavailable Unavailable Macie Whitehead MD Unavailable Unavailable Macie Whitehead MD Unavailable Unavailable Macie Whitehead MD Unavailable Unavailable Macie Whitehead MD Unavailable Unavailable Macie Whitehead MD Unavailable Unavailable Macie Whitehead MD Unavailable Unavailable Macie Whitehead MD Unavailable Unavailable Macie Whitehead MD Unavailable Unavailable Macie Whitehead MD Unavailable Unavailable Macie Whitehead MD Unavailable Unavailable Macie Whitehead MD Unavailable Unavailable Macie Whitehead MD Unavailable Unavailable Macie Whitehead MD Unavailable Unavailable Macie Whitehead MD Unavailable Unavailable Macie Whitehead MD Unavailable Unavailable Macie Whitehead MD Unavailable Unavailable Macie Whitehead MD Unavailable Unavailable Macie Whitehead MD Unavailable Unavailable Macie Whitehead MD Unavailable Unavailable Macie Whitehead MD Unavailable Unavailable Macie Whitehead MD Unavailable Unavailable Macie Whitehead MD Unavailable Unavailable Macie Whitehead MD Unavailable Unavailable Macie Whitehead MD Unavailable Unavailable Macie Whitehead MD Unavailable Unavailable Macie Whitehead MD Unavailable Unavailable Macie Whitehead MD Unavailable Unavailable Macie Whitehead MD Unavailable Unavailable Macie Whitehead MD Unavailable Unavailable Macie Whitehead MD Unavailable Unavailable Macie Whitehead MD Unavailable Unavailable Macie Whitehead MD Unavailable Unavailable Macie Whitehead MD Unavailable Unavailable Macie Whitehead MD Unavailable Unavailable Macie Whitehead MD Unavailable Unavailable Macie Whitehead MD Unavailable Unavailable Macie Whitehead MD Unavailable Unavailable Macie Whitehead MD Unavailable Unavailable Macie Whitehead MD Unavailable Unavailable Macie Whitehead MD Unavailable Unavailable Macie Whitehead MD Unavailable Unavailable Macie Whitehead MD Unavailable Unavailable Macie Whitehead MD Unavailable Unavailable Macie Whitehead MD Unavailable Unavailable Macie Whitehead MD Unavailable Unavailable Macie Whitehead MD Unavailable Unavailable Macie Whitehead MD Unavailable Unavailable Macie Whitehead MD Unavailable Unavailable Macie Whitehead MD Unavailable Unavailable Macie Whitehead MD Unavailable Unavailable Macie Whitehead MD Unavailable Unavailable Macie Whitehead MD Unavailable Unavailable Re-disclosure Warning The records that you are about to access may contain information from federally-assisted alcohol or drug abuse programs. If such information is present, then the following federally mandated warning applies: This information has been disclosed to you from records protected by federal confidentiality rules (42 CFR part 2). The federal rules prohibit you from making any further disclosure of this information unless further disclosure is expressly permitted by the written consent of the person to whom it pertains or as otherwise permitted by 42 CFR part 2. A general authorization for the release of medical or other information is NOT sufficient for this purpose. The Federal rules restrict any use of the information to criminally investigate or prosecute any alcohol or drug abuse patient.The records that you are about to access may contain highly sensitive health information, the redisclosure of which is protected by Article 27-F of the [facility] Public Health law. If you continue you may have access to information: Regarding HIV / AIDS; Provided by facilities licensed or operated by the [facility] Office of Mental Health; or Provided by the [facility] Office for People With Developmental Disabilities. If such information is present, then the following [facility] mandated warning applies: This information has been disclosed to you from confidential records which are protected by state law. State law prohibits you from making any further disclosure of this information without the specific written consent of the person to whom it pertains, or as otherwise permitted by law. Any unauthorized further disclosure in violation of state law may result in a fine or usp sentence or both. A general authorization for the release of medical or other information is NOT sufficient authorization for further disc losure. Encounters Encounter Providers Location Date Indications Data Source(s ) Outpatient 09/11/2020 04:49:34 PM EDT - 021 03:47:21 PM EDT [facility] ([facility]) Gumaro Whitehead MD: [address] [place] [phone], Ph. Attender: Gumaro Whitehead MD [facility] Medical 01/03/2020 12:00:00 AM EST [facility] ([facility]) Gumaro Whitehead MD: [address] [place] [phone], Ph. Attender: Gumaro Whitehead MD [facility] Medical 12/15/2019 12:00:00 AM EDT [facility] ([facility]) Gumaro Whitehead MD: [address] [place] [phone], Ph. Attender: Gumaro Whitehead MD [facility] Medical 12/15/2019 12:00:00 AM EDT [facility] ([facility]) Outpatient Attender: Gumaro Whitehead MD 12/08/2019 10:35:00 AM EDT [facility] Gumaro Whitehead MD: [address] [place] [phone], Ph. Attender: Gumaro Whitehead MD [facility] Medical 12/08/2019 12:00:00 AM EDT [facility] ([facility]) Gumaro Whitehead MD: [address] [place] [phone], Ph. Attender: Gumaro Whitehead MD [facility] Medical 12/08/2019 12:00:00 AM EDT [place] ([facility]) Gumaro Whitehead MD: [address] [place] [phone], Ph. Attender: Gumaro Whitehead MD [facility] Medical 12/08/2019 12:00:00 AM EDT [facility] ([facility]) Outpatient Attender: Gumaro Whitehead MD 12/05/2019 11:40:00 AM EDT [facility] Outpatient Attender: Gumaro Whitehead MD FP 12/01/2019 03:40:01 PM EDT [facility] Outpatient Attender: Gumaro Whitehead MD FP 11/28/2019 02:08:05 PM EDT [facility] Outpatient Attender: Gumaro Whitehead MD FP 11/28/2019 02:08:03 PM EDT [facility] Outpatient Attender: Gumaro Whitehead MD FP 11/24/2019 10:33:02 AM EDT [facility] Outpatient Attender: Gumaro Whitehead MD FP 11/23/2019 02:45:02 PM EDT [facility] Outpatient Attender: Gumaro Whitehead MD FP 11/21/2019 07:13:00 AM EDT [facility] Outpatient Attender: Gumaro Whitehead MD FP 11/20/2019 01:02:00 PM EDT [facility] Outpatient Attender: Gumaro Whitehead MD FP 11/14/2019 08:34:02 AM EDT [facility] Outpatient Attender: Gumaro Whitehead MD FP 11/13/2019 01:58:00 PM EDT [facility] Outpatient Attender: Gumaro Whitehead MD FP 11/10/2019 01:07:00 PM EDT [facility] Outpatient Attender: Gumaro Whitehead MD FP 11/03/2019 02:37:02 PM EDT [facility] Outpatient Attender: Gumaro Whitehead MD FP 11/03/2019 11:14:00 AM EDT [facility] [address] [place] [phone] 11/03/2019 12:00:00 AM EDT [facility]CW1 ([facility]) Outpatient Attender: Gumaro Whitehead MD FP 10/27/2019 10:35:00 AM EDT [facility] Outpatient Attender: Gumaro Whitehead MD FP 10/20/2019 03:17:01 PM EDT [facility] Outpatient Attender: Gumaro Whitehead MD FP 10/20/2019 02:14:00 PM EDT [facility] Outpatient Attender: Gumaro Whitehead MD FP 10/20/2019 01:34:00 PM EDT [facility] Outpatient Attender: Gumaro Whitehead MD FP 10/20/2019 11:14:01 AM EDT [facility] Medications Medication Brand Name Start Date Product Form Dose Route Admi nistrative Instructions Pharmacy Instructions Status Indications Reaction Description Data Source(s) Amoxicillin 875 MG Oral Tablet amoxicillin 875 mg tabl et amoxicillin 875 mg tablet completed amoxicillin 875 MG Oral Tablet [facility] ([facility]) Amoxicillin 875 MG Oral Tablet amoxicillin 875 mg tabl et amoxicillin 875 mg tablet completed amoxicillin 875 MG Oral Tablet [facility] ([facility]) Amoxicillin 875 MG Oral Tablet amoxicillin 875 mg tabl et amoxicillin 875 mg tablet completed amoxicillin 875 MG Oral Tablet [facility] ([facility]) Insurance Providers Payer name Policy type / Coverage type Policy ID Covered alliance party ID Covered alliance party's relationship to pate Policy Pate Plan Information MEDICAID M [id number] Self [id number] Managed Care - Community Plan [facility] P [id number] S [id number] Medicaid S [id number] S [id number] Medicaid Dental O [id number] S [id number] Managed Care - Community Plan [facility] P [id number] S [id number] D Managed Care [facility] O [id number] S [id number] Medicaid S [id number] S [id number] Managed Care - [facility] Community Plan P [id number] S [id number] Managed Care - Community Plan [facility] P [id number] S [id number] Medicaid S [id number] S [id number] Managed Care - [facility] Community Plan P [id number] S [id number] Medicaid S [id number] S [id number] [employer] [id number] SP [id number] [employer] COMMUNITY PLAN MCDO [id number] SP [id number] [facility](MCAID) O [id number] S [id number] MEDICAID [id number] Managed Care - Community Plan [facility] P [id number] S [id number] Medicaid S [id number] S [id number] [facility](MCAID) O [id number] S [id number] [employer] COMMUNITY PLAN [facility] [id number] SP [id number] Problems, Conditions, and Diagnoses Code Display Name Description Problem Type Effective Dates Data Source(s) 145846823 Attention deficit hyperactivity disorder Attention Deficit Hyperactivity Disorder Problem 12/08/2019 12:00:00 AM EDT [facility] ([facility]) [id number] Attention deficit hyperactivity disorder Attention Deficit Hyperactivity Disorder Problem 12/08/2019 12:00:00 AM EDT [facility] ([facility]) 980156494 Attention deficit hyperactivity disorder Attention Deficit Hyperactivity Disorder Problem 12/08/2019 12:00:00 AM EDT [facility] ([facility]) [id number] Relationship distress with spouse or int imate partner Relationship Distress with Spouse or Intimate Partner Problem 12/07/2019 12:00:00 AM EDT [facility] ([facility]) 427271970 Anxiety disorder Anxiety Disorder Problem 12/07/2019 12 :00:00 AM EDT [place] ([facility]) [id number] Relationship distress with spouse or int imate partner Relationship Distress with Spouse or Intimate Partner Problem 12/07/2019 12:00:00 AM EDT [facility] ([facility]) 729022733 Anxiety disorder Anxiety Disorder Problem 12/07/2019 12 :00:00 AM EDT [place] ([facility]) [id number] Relationship distress with spouse or int imate partner Relationship Distress with Spouse or Intimate Partner Problem 12/07/2019 12:00:00 AM EDT [place] ([facility]) 172978831 Anxiety disorder Anxiety Disorder Problem 12/07/2019 12 :00:00 AM EDT [place] ([facility]) Z63.0 Problems in relationship with spouse or partner RELATIONSHIP DISTRESS WITH SPOUSE OR INTIMATE PARTNER 11/28/2019 02:07:14 PM EDT [facility] 300.00 ANXIETY DISORDER, UNSPECIFIED ANXIETY DISORDER, UNSPEC IFIED 11/28/2019 02:07:14 PM EDT [facility] Surgeries/Procedures Procedure Description Date Indications Data Source(s) Insertion Of Non-Tunneled Centrally Inserted Central Venous Carmen 09/28/2020 12:00:00 AM EDT [facility] ([facility] ) Ultrasound Guidance For Vascular Access Requiring Ultrasound Eval 09/28/2020 12:00:00 AM EDT [facility] ([facility], ) Results ID Date Data Source [id number] 09/28/2020 02:00:00 PM EDT [facility] Name Value Range Interpretation Code Description Data Latrice rce(s) Supporting Document(s) SARS coronavirus 2 RNA [Presence] in Res piratory specimen by RAMÍREZ with probe detection NEGATIVE [facility] This lab was ordered by [facility] a nd reported by [facility]. Procedure Social History No Information Vital Signs ID Date Data Source UNK Name Value Range Interpretation Code Description Data Source(s) Diastolic blood pressure 66 mm[Hg] 66 mm[Hg] [facility] ([facility]) Body height 63 [in_i] 63 [in_i] [facility] ([facility]) Body mass index (BMI) [Ratio] 38.8 kg/m2 38.8 k g/m2 [facility] ([facility]) Systolic blood pressure 104 mm[Hg] 104 mm[Hg] [facility] Body weight 3507.2 [oz_av] 3507.2 [oz_av] ATHEN A ([facility]) Diastolic blood pressure 78 mm[Hg] 78 mm[Hg] [facility] ([facility]) Body height 63 [in_i] 63 [in_i] [facility] ([facility]) Body mass index (BMI) [Ratio] 37.7 kg/m2 37.7 k g/m2 [facility] ([facility]) Systolic blood pressure 129 mm[Hg] 129 mm[Hg] A [facility] ([facility]) Body weight 3401.6 [oz_av] 3401.6 [oz_av] ATHEN A ([facility]) Diastolic blood pressure 78 mm[Hg] 78 mm[Hg] [facility] ([facility]) Body height 63 [in_i] 63 [in_i] [facility] ([facility]) Body mass index (BMI) [Ratio] 37.7 kg/m2 37.7 k g/m2 [facility] ([facility]) Systolic blood pressure 129 mm[Hg] 129 mm[Hg] [facility]) Body weight 3401.6 [oz_av] 3401.6 [oz_av] ATHEN A ([facility]) Diastolic blood pressure 77 mm[Hg] 77 mm[Hg] [facility] ([facility]) Body height 63 [in_i] 63 [in_i] [facility] ([facility]) Body mass index (BMI) [Ratio] 37.9 kg/m2 37.9 k g/m2 [facility] ([facility]) Systolic blood pressure 114 mm[Hg] 114 mm[Hg] [facility]) Body weight 3420.8 [oz_av] 3420.8 [oz_av] ATHEN A ([facility]) Diastolic blood pressure 77 mm[Hg] 77 mm[Hg] [facility] ([facility]) Body height 63 [in_i] 63 [in_i] [facility] ([facility]) Body mass index (BMI) [Ratio] 37.9 kg/m2 37.9 k g/m2 [facility] ([facility]) Systolic blood pressure 114 mm[Hg] 114 mm[Hg] A REJI ([facility]) Body weight 3420.8 [oz_av] 3420.8 [oz_av] ATHTIP A ([facility]) Diastolic blood pressure 77 mm[Hg] 77 mm[Hg] [facility] ([facility]) Body height 63 [in_i] 63 [in_i] [facility] ([facility]) Body mass index (BMI) [Ratio] 37.9 kg/m2 37.9 k g/m2 [facility] ([facility]) Systolic blood pressure 114 mm[Hg] 114 mm[Hg] A REJI ([facility]) Body weight 3420.8 [oz_av] 3420.8 [oz_av] ATHEN A ([facility]) Patient Treatment Plan of Care Planned Activity Planned Date Details Description Data Source (s) Amoxicillin 875 MG Oral Tablet [facility] ([facility]) Amoxicillin 875 MG Oral Tablet [facility] ([facility]) Amoxicillin 875 MG Oral Tablet [facility] ([facility])
--- OUTSIDE RECORDS SUMMARY | 2020-12-16 13:58 | CCD ---
Author Author [facility] Organization [facility] Address Unknown Phone Unavailable Care Team Providers Care [employer] Name Role Phone Macie Whitehead MD Unavailable [...] is protected by Article 27-F of the [place] [employer] law. If you continue you may have access to information: Regarding HIV / AIDS; Provided by facilities licensed or operated by the [facility] Office of Mental Health; or Provided by the [facility] Office for People With Developmental Disabilities. If such information is present, then the following [facility] mandated warning applies: This information has been [...] law may result in a fine or nursing home sentence or both. A general authorization for the release of medical or other information is NOT sufficient authorization for further disc losure. Encounters Encounter Providers Location Date Indications Data Source(s ) Outpatient 09/11/2020 04:49:34 PM EDT - 021 03:47:21 PM EDT [facility] ([facility]) Gumaro Whitehead MD: [address] [place] [phone], Ph. Attender: Gumaro Whitehead MD [facility] Medical 01/03/2020 12:00:00 AM EST K[facility] ([facility]) Gumaro Whitehead MD: [address] [place] [phone], Ph. Attender: Gumaro Whitehead MD [facility] Medical 12/15/2019 12:00:00 AM EDT K[facility] ([facility]) Gumaro Whitehead MD: [address] [place] [phone], Ph. Attender: Gumaro Whitehead MD [facility] Medical 12/15/2019 12:00:00 AM EDT K[facility]ZIE ([facility]) Outpatient Attender: Gumaro Whitehead MD 12/08/2019 10:35:00 AM EDT [facility] Gumaro Whitehead MD: [address] [place] [phone], Ph. Attender: Gumaro Whitehead MD [facility] Medical 12/08/2019 12:00:00 AM EDT K[facility] ([facility]) Gumaro Whitehead MD: [address] [place] [phone], Ph. Attender: Gumaro Whitehead MD [facility] Medical 12/08/2019 12:00:00 AM EDT K[facility]ZIE ([facility]) Gumaro Whitehead MD: [address] [place] [phone], Ph. Attender: Gumaro Whitehead MD [facility] Medical 12/08/2019 12:00:00 AM EDT K[facility] ([facility]) Outpatient Attender: Gumaro Whitehead MD 12/05/2019 11:40:00 AM EDT [facility] Outpatient Attender: Gumaro Whitehead MD FP 12/01/2019 03:40:01 PM EDT [facility] Outpatient Attender: Gumaro Whitehead MD FP 11/28/2019 02:08:05 PM EDT [facility] Outpatient Attender: Gumaro Whitehead MD FP 11/28/2019 02:08:03 PM EDT [facility] Outpatient Attender: Gumaro Whitehead MD FP 11/24/2019 10:33:02 AM EDT [facility] Outpatient Attender: Gumaro Whitehead MD FP 11/23/2019 02:45:02 PM EDT [facility] Outpatient Attender: Gumaro Whitehead MD FP 11/21/2019 07:13:00 AM EDT [facility] Outpatient Attender: Gumaro Whitehead MD FP 11/20/2019 01:02:00 PM EDT [facility] Outpatient Attender: Gumaro Whitehead MD FP 11/14/2019 08:34:02 AM EDT [facility] Outpatient Attender: Gumaro Whitehead MD FP 11/13/2019 01:58:00 PM EDT [facility] Outpatient Attender: Gumaro Whitehead MD FP 11/10/2019 01:07:00 PM EDT [facility] Outpatient Attender: Gumaro Whitehead MD FP 11/03/2019 02:37:02 PM EDT [facility] Outpatient Attender: Gumaro Whitehead MD FP 11/03/2019 11:14:00 AM EDT [facility] [address] [place] [phone] 11/03/2019 12:00:00 AM EDT eCW1 ([facility]) Outpatient Attender: Gumaro Whitehead MD FP 10/27/2019 10:35:00 AM EDT [facility] Outpatient Attender: Gumaro Whitehead MD FP 10/20/2019 03:17:01 PM EDT [facility] Outpatient Attender: Gumaro Whitehead MD FP 10/20/2019 02:14:00 PM EDT [facility] Outpatient Attender: Gumaro Whitehead MD FP 10/20/2019 01:34:00 PM EDT [facility] Outpatient Attender: Gumaro Whitehead MD FP 10/20/2019 11:14:01 AM EDT [facility] Medications Medication Brand Name Start Date Product Form Dose Route Admi nistrative Instructions Pharmacy Instructions Status Indications Reaction Description Data Source(s) Amoxicillin 875 MG Oral Tablet amoxicillin 875 mg tabl et amoxicillin 875 mg tablet completed amoxicillin 875 MG Oral Tablet K[facility]ZIE ([facility]) Amoxicillin 875 MG Oral Tablet amoxicillin 875 mg tabl et amoxicillin 875 mg tablet completed amoxicillin 875 MG Oral Tablet K[facility] ([facility]) Amoxicillin 875 MG Oral Tablet amoxicillin 875 mg tabl et amoxicillin 875 mg tablet completed amoxicillin 875 MG Oral Tablet K[facility] ([facility]) Insurance Providers Payer name Policy type / Coverage type Policy ID Covered green party ID Covered green party's relationship to pate Policy Pate Plan Information MEDICAID M [id number] Self [id number] Managed Care - Community Plan [facility] P [id number] S [id number] Medicaid S [id number] S [id number] Medicaid Dental O [id number] Managed Care - Community Plan [facility] P [id number] S [id number] D Managed Care [facility] O [id number] S [id number] Medicaid S [id number] S [id number] Managed Care - [facility] Community Plan P [id number] S [id number] Managed Care - Community Plan [facility] P [id number] S [id number] Medicaid S [id number] S [id number] Managed Care - [facility] Community Plan P [id number] S [id number] Medicaid S [id number] S [id number] [employer] PLAN [id number] SP [id number] [employer] COMMUNITY PLAN MCDO [id number] SP [id number] [facility]) O [id number] S [id number] MEDICAID [id number] [id number] Managed Care - Community Plan [facility] P [id number] S [id number] Medicaid S [id number] S [id number] [facility]) O [id number] S [id number] [employer] COMMUNITY PLAN [facility] [id number] SP [id number] Problems, Conditions, and Diagnoses Code Display Name Description Problem Type Effective Dates Data Source(s) 867872795 Attention deficit hyperactivity disorder Attention Deficit Hyperactivity Disorder Problem 12/08/2019 12:00:00 AM EDT [facility] ([facility]) 476298351 Attention deficit hyperactivity disorder Attention Deficit Hyperactivity Disorder Problem 12/08/2019 12:00:00 AM EDT [facility] ([facility]) 488272109 Attention deficit hyperactivity disorder Attention Deficit Hyperactivity Disorder Problem 12/08/2019 12:00:00 AM EDT [facility] ([facility]) [id number] Relationship distress with spouse or int imate partner Relationship Distress with Spouse or Intimate Partner Problem 12/07/2019 12:00:00 AM EDT [facility]ZIE ([facility]) 580760054 Anxiety disorder Anxiety Disorder Problem 12/07/2019 12 :00:00 AM EDT [facility] ([facility]) [id number] Relationship distress with spouse or int imate partner Relationship Distress with Spouse or Intimate Partner Problem 12/07/2019 12:00:00 AM EDT [facility] ([facility]) 764526184 Anxiety disorder Anxiety Disorder Problem 12/07/2019 12 :00:00 AM EDT [facility] ([facility]) [id number] Relationship distress with spouse or int imate partner Relationship Distress with Spouse or Intimate Partner Problem 12/07/2019 12:00:00 AM EDT [facility] ([facility]) 588597813 Anxiety disorder Anxiety Disorder Problem 12/07/2019 12 :00:00 AM EDT [facility] ([facility]) Z63.0 Problems in relationship with spouse or partner RELATIONSHIP DISTRESS WITH SPOUSE OR INTIMATE PARTNER 11/28/2019 02:07:14 PM EDT [facility] 300.00 ANXIETY DISORDER, UNSPECIFIED ANXIETY DISORDER, UNSPEC IFIED 11/28/2019 02:07:14 PM EDT [facility] Surgeries/Procedures Procedure Description Date Indications Data Source(s) Insertion Of Non-Tunneled Centrally Inserted Central Venous Carmen 09/28/2020 12:00:00 AM EDT [facility] Ultrasound Guidance For Vascular Access Requiring Ultrasound Eval 09/28/2020 12:00:00 AM EDT [facility] Results ID Date Data Source [id number] 09/28/2020 02:00:00 PM EDT [facility] Name Value Range Interpretation Code Description Data Latrice rce(s) Supporting Document(s) SARS coronavirus 2 RNA [Presence] in Res piratory specimen by RAMÍREZ with probe detection NEGATIVE [facility] This lab was ordered by [facility] a nd reported by [facility] [place]. Procedure Social History No Information Vital Signs ID Date Data Source UNK Name Value Range Interpretation Code Description Data Source(s) Diastolic blood pressure 66 mm[Hg] 66 mm[Hg] [facility] ([facility]) Body height 63 [in_i] 63 [in_i] [facility] ([facility]) Body mass index (BMI) [Ratio] 38.8 kg/m2 38.8 k g/m2 [facility] ([facility]) Systolic blood pressure 104 mm[Hg] 104 mm[Hg] [facility] Body weight 3507.2 [oz_av] 3507.2 [oz_av] ATHEN A ([facility]) Diastolic blood pressure 78 mm[Hg] 78 mm[Hg] [facility]ZIE ([facility]) Body height 63 [in_i] 63 [in_i] [facility] ([facility]) Body mass index (BMI) [Ratio] 37.7 kg/m2 37.7 k g/m2 [facility] ([facility]) Systolic blood pressure 129 mm[Hg] 129 mm[Hg] A [facility] ([facility]) Body weight 3401.6 [oz_av] 3401.6 [oz_av] ATHEN A ([facility]) Diastolic blood pressure 78 mm[Hg] 78 mm[Hg] [facility]ZIE ([facility]) Body height 63 [in_i] 63 [in_i] [facility] ([facility]) Body mass index (BMI) [Ratio] 37.7 kg/m2 37.7 k g/m2 [facility] ([facility]) Systolic blood pressure 129 mm[Hg] 129 mm[Hg] [facility] Body weight 3401.6 [oz_av] 3401.6 [oz_av] ATHEN A ([facility]) Diastolic blood pressure 77 mm[Hg] 77 mm[Hg] K[facility]ZIE ([facility]) Body height 63 [in_i] 63 [in_i] [facility] ([facility]) Body mass index (BMI) [Ratio] 37.9 kg/m2 37.9 k g/m2 [facility] ([facility]) Systolic blood pressure 114 mm[Hg] 114 mm[Hg] [facility] Body weight 3420.8 [oz_av] 3420.8 [oz_av] ATHEN A ([facility]) Diastolic blood pressure 77 mm[Hg] 77 mm[Hg] KENZIE ([facility]) Body height 63 [in_i] 63 [in_i] K[facility]ZIE ([facility]) Body mass index (BMI) [Ratio] 37.9 kg/m2 37.9 k g/m2 [facility] ([facility]) Systolic blood pressure 114 mm[Hg] 114 mm[Hg] A REJI ([facility]) Body weight 3420.8 [oz_av] 3420.8 [oz_av] ATHTIP A ([facility]) Diastolic blood pressure 77 mm[Hg] 77 mm[Hg] KENZIE ([facility]) Body height 63 [in_i] 63 [in_i] [facility]ZIE ([facility]) Body mass index (BMI) [Ratio] 37.9 kg/m2 37.9 k g/m2 [facility] ([facility]) Systolic blood pressure 114 mm[Hg] 114 mm[Hg] A REJI ([facility]) Body weight 3420.8 [oz_av] 3420.8 [oz_av] ATHEN A ([facility]) Patient Treatment Plan of Care Planned Activity Planned Date Details Description Data Source (s) Amoxicillin 875 MG Oral Tablet [facility] ([facility]) Amoxicillin 875 MG Oral Tablet [facility] ([facility]) Amoxicillin 875 MG Oral Tablet [facility] ([facility])
[2020-12-16 15:35] LABS: BASO # 0.1 10^3/uL (0.0-0.2); BASO % 0.3 % (0.0-1.0); EOS % 0.1 % (0.0-3.0); HEMOGLOBIN 14.4 g/dl (12.0-15.5); LYMPH # 1.3 10^3/uL (1.5-5.0); LYMPH % 7.6 % (24.0-44.0); MEAN CORPUSCULAR HEMOGLOBIN 28.2 pg (27.0-33.0); MEAN CORPUSCULAR VOLUME 88.2 fl (80.0-96.0); NEUTROPHILS # 14.8 10^3/uL (1.5-8.5); NEUTROPHILS % 85.7 % (36.0-66.0); PLATELET COUNT, AUTOMATED 460 10^3/uL (150-450); WHITE BLOOD COUNT 17.3 10^3/uL (4.0-10.0)
[2020-12-16 16:30] LABS: RSV AMPLIFICATION NEGATIVE (NEGATIVE)
[2020-12-16 17:00] LABS: ERYTHROCYTE SEDIMENTATION RATE 49 mm/hr (0-20)
[2020-12-16 17:51] LABS: BLOOD UREA NITROGEN 7 MG/DL (7-18); C REACTIVE PROTEIN QUANTITATIV 9.72 MG/DL (0.00-0.30); CALCIUM LEVEL 8.7 MG/DL (8.5-10.1); CARBON DIOXIDE LEVEL 28 MEQ/L (21-32); CHLORIDE LEVEL 103 MEQ/L (98-107); CREATININE FOR GFR 0.52 MG/DL (0.55-1.30); GLOMERULAR FILTRATION RATE > 60.0 (>60); GLUCOSE, FASTING 94 MG/DL (70-100); POTASSIUM SERUM 4.3 MEQ/L (3.5-5.1); SODIUM LEVEL 134 MEQ/L (136-145)
[2020-12-16] MEDS ORDERED: VANCOMYCIN HCL 1,000 MG in IV FLUID PLACE HOLDER 1 EA IV ONE (18:20)
[2020-12-16] MEDS ORDERED: VANCOMYCIN HCL 1,000 MG, VIAL MATE ADAPTER 1 EACH in NS 250 ML IV ONE (19:00)
[2020-12-16 22:05] VITALS: BP 106/60
== END 2020-12-16 22:15 | disposition short-term general hospital (02) ==
LOC: M ED 10:02
DX: M65.142 Other infective (teno)synovitis, left hand (principal); L03.114 Cellulitis of left upper limb; F19.10 Other psychoactive substance abuse, uncomplicated; D64.9 Anemia, unspecified; B18.2 Chronic viral hepatitis C; Z87.442 Personal history of urinary calculi; Z91.030 Bee allergy status; Z91.040 Latex allergy status
CPT/HCPCS: 80048; 85025; 85652; 86140; 87040; 87077; 87186; 87631; 96365; 99284; J3370

== ENCOUNTER 2022-12-20 20:44 | Inpatient (IN) | payer OTHER ==
[~2022-12-20] VITALS: Ht 160 cm; Wt 100.6 kg
[~2022-12-20 20:44] MED LIST changes: +AMOX875T2 PO
[2022-12-20] MEDS ORDERED: VANCOMYCIN HCL 1,500 MG in IV FLUID PLACE HOLDER 1 EA IV ONE (21:25)
[2022-12-20] MEDS ORDERED: PIPERACILLIN/TAZOBACTAM SOD 4.5 GM in D5W MINI-BAG PLUS 50 ML IV ONE (21:25)
[2022-12-20] MEDS ORDERED: NS 2,860 ML in IV 1 EA IV ONE (21:25)
[2022-12-20] MEDS ORDERED: VANCOMYCIN HCL 750 MG, VIAL MATE ADAPTER 1 EACH in D5W 250 ML IV ONE ×6 (21:30)
[2022-12-20] MEDS ORDERED: ACETAMINOPHEN TAB 650MG DOSE (2X325MG) PO ONE (21:30)
[2022-12-20 21:44] LABS: BASO % 0.2 % (0.0-1.0); EOS # 0.1 10^3/uL (0.0-0.5); EOS % 0.3 % (0.0-3.0); HEMATOCRIT 39.5 % (36.0-47.0); LYMPH # 0.5 10^3/uL (1.5-5.0); LYMPH % 2.1 % (24.0-44.0); MEAN CORPUSCULAR HEMOGLOBIN 28.7 pg (27.0-33.0); MEAN CORPUSCULAR HGB CONC 32.9 g/dl (32.0-36.5); MEAN CORPUSCULAR VOLUME 87.2 fl (80.0-96.0); MONO # 0.6 10^3/uL (0.0-0.8); NEUTROPHILS # 19.5 10^3/uL (1.5-8.5); NEUTROPHILS % 92.5 % (36.0-66.0); PLATELET COUNT, AUTOMATED 363 10^3/uL (150-450); RED BLOOD COUNT 4.53 10^6/uL (4.00-5.40); WHITE BLOOD COUNT 21.1 10^3/uL (4.0-10.0)
[2022-12-20 22:00] LABS: ALBUMIN 3.4 G/DL (3.2-5.2); ALKALINE PHOSPHATASE 135 U/L (46-116); ALT/SGPT 12 U/L (7.0-40); AMYLASE 29 U/L (30-118); AST/SGOT 14 U/L (<34); BILIRUBIN,DIRECT 0.2 MG/DL (<0.4); BILIRUBIN,TOTAL 0.6 MG/DL (0.3-1.2); BLOOD UREA NITROGEN 8 MG/DL (9-23); CALCIUM LEVEL 8.6 MG/DL (8.5-10.1); CARBON DIOXIDE LEVEL 23 MMOL/L (20-31); CHLORIDE LEVEL 98 MMOL/L (98-107); CREATININE FOR GFR 0.78 MG/DL (0.55-1.30); GLOMERULAR FILTRATION RATE > 60.0 (>60); GLUCOSE, FASTING 96 MG/DL (60-100); POTASSIUM SERUM 3.7 MMOL/L (3.5-5.1); SODIUM LEVEL 130 MMOL/L (136-145); TOTAL PROTEIN 7.5 G/DL (5.7-8.2)
[2022-12-20 22:02] LABS: HCG, SERUM QUALITATIVE NEGATIVE (NEGATIVE)
[2022-12-20 22:13] LABS: RSV AMPLIFICATION NEGATIVE (NEGATIVE)
[2022-12-20] MEDS ORDERED: ACETAMINOPHEN TAB 650MG DOSE (2X325MG) PO PRN (23:30)
[2022-12-20] MEDS ORDERED: MOM 30ML SUSPENSION UDC PO PRN (23:30)
[2022-12-21] VITALS (48 sets, daily range): BP systolic 74–120; BP diastolic 43–66; TEMP 97–101.5; O2SAT 95–100
[2022-12-21 00:32] LABS: AMPHETAMINES LEVEL URINE NEGATIVE (NEGATIVE); BENZODIAZEPINES URINE NEGATIVE (NEGATIVE)
[2022-12-21 00:33] LABS: BARBITURATES URINE NEGATIVE (NEGATIVE); CANNABINOIDS URINE NEGATIVE (NEGATIVE); COCAINE METABOLITE URINE NEGATIVE (NEGATIVE); METHADONE URINE NEGATIVE (NEGATIVE); OPIATES URINE NEGATIVE (NEGATIVE); PHENCYCLIDINE URINE NEGATIVE (NEGATIVE)
[2022-12-21] MEDS: NS 1,000 ML IV SCH ×2 (01:28→10:00)
[2022-12-21] MEDS: PIPERACILLIN/TAZOBACTAM SOD 4.5 GM in D5W MINI-BAG PLUS 50 ML IV SCH ×2 (03:32→10:01)
[2022-12-21] MEDS ORDERED: SODIUM CHLORIDE 0.9% 1000ML IV ONE (03:55)
[2022-12-21] MEDS: VANCOMYCIN HCL 1,000 MG, VIAL MATE ADAPTER 1 EACH in NS 250 ML IV SCH ×3 (04:58→20:13)
[2022-12-21] MEDS ORDERED: LR 1,000 ML IV ONE (05:55)
[2022-12-21] MEDS ORDERED: NS 1,000 ML IV ONE (07:45)
[2022-12-21] MEDS: ENOXAPARIN 40MG/0.4ML SYRINGE (J1650 PER 10MG) SC SCH (10:01)
[2022-12-21 11:05] LABS: BASO % 0.2 % (0.0-1.0); EOS # 0.1 10^3/uL (0.0-0.5); EOS % 0.4 % (0.0-3.0); HEMATOCRIT 32.5 % (36.0-47.0); LYMPH # 0.5 10^3/uL (1.5-5.0); LYMPH % 2.5 % (24.0-44.0); MEAN CORPUSCULAR HEMOGLOBIN 28.6 pg (27.0-33.0); MEAN CORPUSCULAR HGB CONC 32.3 g/dl (32.0-36.5); MEAN CORPUSCULAR VOLUME 88.6 fl (80.0-96.0); MONO # 0.5 10^3/uL (0.0-0.8); MONO % 2.4 % (2.0-8.0); NEUTROPHILS # 17.4 10^3/uL (1.5-8.5); NEUTROPHILS % 93.2 % (36.0-66.0); RED BLOOD COUNT 3.67 10^6/uL (4.00-5.40); WHITE BLOOD COUNT 18.7 10^3/uL (4.0-10.0)
[2022-12-21 11:11] LABS: C REACTIVE PROTEIN QUANTITATIV 25.7 MG/DL (<1.0); MAGNESIUM LEVEL 1.6 MG/DL (1.8-2.4)
[2022-12-21 11:14] LABS: ANTI-STREPTOLYSIN O QUANT 445.9 IU/ML (<195)
[2022-12-21 11:30] LABS: HEMOGLOBIN 10.5 g/dl (12.0-15.5); PLATELET COUNT, AUTOMATED 262 10^3/uL (150-450)
[2022-12-21 12:20] LABS: ALBUMIN 2.2 G/DL (3.2-5.2); ALKALINE PHOSPHATASE 92 U/L (46-116); ALT/SGPT 12 U/L (7.0-40); AST/SGOT 29 U/L (<34); BILIRUBIN,TOTAL 0.3 MG/DL (0.3-1.2); BLOOD UREA NITROGEN 9 MG/DL (9-23); CALCIUM LEVEL 6.7 MG/DL (8.5-10.1); CARBON DIOXIDE LEVEL 21 MMOL/L (20-31); CHLORIDE LEVEL 108 MMOL/L (98-107); CREATININE FOR GFR 0.68 MG/DL (0.55-1.30); GLOMERULAR FILTRATION RATE > 60.0 (>60); GLUCOSE, FASTING 135 MG/DL (60-100); SODIUM LEVEL 138 MMOL/L (136-145); TOTAL PROTEIN 5.3 G/DL (5.7-8.2)
[2022-12-21] MEDS ORDERED: SUBO4MIS SL (13:32)
[2022-12-21] MEDS ORDERED: HOME MED LIST COMPLETE! XX SCH (13:35)
[2022-12-21] MEDS ORDERED: MAG SULF 1GM/100ML (MAG RUN) 1 GM in IV 1 EA IV SCH (14:00)
[2022-12-21] MEDS ORDERED: CALCIUM GLUCONATE 1,000 MG in D5W MINI-BAG PLUS 100 ML IV SCH (15:00)
[2022-12-21] MEDS ORDERED: BOOSTRIX VACCINE (TETANUS/DIPHTH/ACEL. PERTUSSIS) 0.5ML SYR IM ONE (15:50)
[2022-12-21] MEDS: MUPIROCIN 2% OINT 22 GM TUBE TOP SCH (20:13)
[2022-12-22] VITALS (10 sets, daily range): BP systolic 100–119; BP diastolic 55–63; TEMP 97.8–99.8; O2SAT 97–100
[2022-12-22] MEDS: VANCOMYCIN HCL 750 MG, VIAL MATE ADAPTER 1 EACH in D5W 250 ML IV SCH ×6 (00:48→21:01)
[2022-12-22 07:15] LABS: BASO # 0.1 10^3/uL (0.0-0.2); BASO % 0.3 % (0.0-1.0); EOS # 0.1 10^3/uL (0.0-0.5); EOS % 0.3 % (0.0-3.0); HEMOGLOBIN 10.4 g/dl (12.0-15.5); LYMPH # 1.2 10^3/uL (1.5-5.0); LYMPH % 8.3 % (24.0-44.0); MEAN CORPUSCULAR HEMOGLOBIN 28.9 pg (27.0-33.0); MEAN CORPUSCULAR HGB CONC 32.5 g/dl (32.0-36.5); MEAN CORPUSCULAR VOLUME 88.9 fl (80.0-96.0); MONO # 1.3 10^3/uL (0.0-0.8); MONO % 8.7 % (2.0-8.0); NEUTROPHILS # 11.9 10^3/uL (1.5-8.5); NEUTROPHILS % 81.4 % (36.0-66.0); PLATELET COUNT, AUTOMATED 285 10^3/uL (150-450); WHITE BLOOD COUNT 14.6 10^3/uL (4.0-10.0)
[2022-12-22] MEDS: ENOXAPARIN 40MG/0.4ML SYRINGE (J1650 PER 10MG) SC SCH (08:07)
[2022-12-22] MEDS: MUPIROCIN 2% OINT 22 GM TUBE TOP SCH ×2 (08:08→21:01)
[2022-12-22 08:19] LABS: BLOOD UREA NITROGEN 11 MG/DL (9-23); CALCIUM LEVEL 7.4 MG/DL (8.5-10.1); CARBON DIOXIDE LEVEL 21 MMOL/L (20-31); CHLORIDE LEVEL 109 MMOL/L (98-107); CREATININE FOR GFR 0.67 MG/DL (0.55-1.30); GLOMERULAR FILTRATION RATE > 60.0 (>60); GLUCOSE, FASTING 87 MG/DL (60-100); MAGNESIUM LEVEL 1.8 MG/DL (1.8-2.4); POTASSIUM SERUM 3.6 MMOL/L (3.5-5.1); SODIUM LEVEL 139 MMOL/L (136-145); VANCOMYCIN RANDOM 21.4 UG/ML
[2022-12-22] MEDS ORDERED: PILL CUTTER 1 EACH XX PRN (08:25)
[2022-12-22 08:47] LABS: HIV 1&2 SCREEN NEGATIVE (NEGATIVE)
[2022-12-22 09:00] LABS: HEPATITIS C VIRUS ABY INDEX > 11.00 INDEX (<0.8)
[2022-12-22] MEDS: BUPRENORPHINE/NALOXONE 8-2MG SUBLINGUAL TABLET(SUBOXONE) SL SCH (10:06)
[2022-12-22] MEDS ORDERED: ISOVUE-370 76% 100ML VIAL As Ordered ONE (15:47)
[2022-12-22] MEDS ORDERED: LIDOCAINE 1% MDV 20ML VIAL As Ordered ONE (23:32)
[2022-12-23 05:13] VITALS: BP 94/51; TEMP 97.7; O2SAT 97
[2022-12-23 06:54] LABS: BASO % 0.5 % (0.0-1.0); EOS # 0.1 10^3/uL (0.0-0.5); EOS % 1.3 % (0.0-3.0); HEMATOCRIT 28.4 % (36.0-47.0); HEMOGLOBIN 9.2 g/dl (12.0-15.5); LYMPH # 1.5 10^3/uL (1.5-5.0); LYMPH % 19.5 % (24.0-44.0); MEAN CORPUSCULAR HEMOGLOBIN 28.7 pg (27.0-33.0); MEAN CORPUSCULAR HGB CONC 32.4 g/dl (32.0-36.5); MEAN CORPUSCULAR VOLUME 88.5 fl (80.0-96.0); MONO # 0.6 10^3/uL (0.0-0.8); MONO % 7.1 % (2.0-8.0); NEUTROPHILS # 5.6 10^3/uL (1.5-8.5); NEUTROPHILS % 71.1 % (36.0-66.0); PLATELET COUNT, AUTOMATED 295 10^3/uL (150-450); RED BLOOD COUNT 3.21 10^6/uL (4.00-5.40); WHITE BLOOD COUNT 7.8 10^3/uL (4.0-10.0)
[2022-12-23 07:19] LABS: BLOOD UREA NITROGEN 9 MG/DL (9-23); CALCIUM LEVEL 7.3 MG/DL (8.5-10.1); CARBON DIOXIDE LEVEL 24 MMOL/L (20-31); CHLORIDE LEVEL 108 MMOL/L (98-107); CREATININE FOR GFR 0.62 MG/DL (0.55-1.30); GLOMERULAR FILTRATION RATE > 60.0 (>60); GLUCOSE, FASTING 86 MG/DL (60-100); MAGNESIUM LEVEL 1.9 MG/DL (1.8-2.4); POTASSIUM SERUM 3.4 MMOL/L (3.5-5.1); SODIUM LEVEL 140 MMOL/L (136-145)
[2022-12-23 07:54] VITALS: BP 116/72; TEMP 97; O2SAT 98
[2022-12-23] MEDS: VANCOMYCIN HCL 750 MG, VIAL MATE ADAPTER 1 EACH in D5W 250 ML IV SCH ×4 (09:12→21:56)
[2022-12-23] MEDS: ENOXAPARIN 40MG/0.4ML SYRINGE (J1650 PER 10MG) SC SCH (09:12)
[2022-12-23] MEDS: MUPIROCIN 2% OINT 22 GM TUBE TOP SCH ×2 (09:13→20:36)
[2022-12-23] MEDS: BUPRENORPHINE/NALOXONE 8-2MG SUBLINGUAL TABLET(SUBOXONE) SL SCH (09:25)
[2022-12-23 15:36] VITALS: BP 109/72; TEMP 96.7; O2SAT 100
[2022-12-23] MEDS ORDERED: POTASSIUM CHLORIDE 10MEQ SR TABLET PO ONE (18:00)
[2022-12-23 20:26] VITALS: BP 107/51; TEMP 98; O2SAT 98
[2022-12-24 05:11] VITALS: BP 115/74; TEMP 97.1; O2SAT 98
[2022-12-24 08:14] VITALS: BP 116/71; TEMP 97.1; O2SAT 98
[2022-12-24] MEDS: BUPRENORPHINE/NALOXONE 8-2MG SUBLINGUAL TABLET(SUBOXONE) SL SCH (08:16)
[2022-12-24] MEDS: ENOXAPARIN 40MG/0.4ML SYRINGE (J1650 PER 10MG) SC SCH (08:16)
[2022-12-24] MEDS: VANCOMYCIN HCL 750 MG, VIAL MATE ADAPTER 1 EACH in D5W 250 ML IV SCH ×2 (08:16→09:50)
[2022-12-24 09:21] LABS: BASO # 0.1 10^3/uL (0.0-0.2); BASO % 0.8 % (0.0-1.0); EOS # 0.1 10^3/uL (0.0-0.5); EOS % 1.2 % (0.0-3.0); HEMATOCRIT 29.8 % (36.0-47.0); HEMOGLOBIN 9.6 g/dl (12.0-15.5); LYMPH # 1.6 10^3/uL (1.5-5.0); MEAN CORPUSCULAR HEMOGLOBIN 28.7 pg (27.0-33.0); MEAN CORPUSCULAR HGB CONC 32.2 g/dl (32.0-36.5); MEAN CORPUSCULAR VOLUME 89.2 fl (80.0-96.0); MONO # 0.6 10^3/uL (0.0-0.8); MONO % 8.4 % (2.0-8.0); NEUTROPHILS # 5.1 10^3/uL (1.5-8.5); NEUTROPHILS % 67.3 % (36.0-66.0); PLATELET COUNT, AUTOMATED 294 10^3/uL (150-450); RED BLOOD COUNT 3.34 10^6/uL (4.00-5.40); WHITE BLOOD COUNT 7.6 10^3/uL (4.0-10.0)
[2022-12-24 09:47] LABS: BLOOD UREA NITROGEN 8 MG/DL (9-23); CALCIUM LEVEL 7.8 MG/DL (8.5-10.1); CARBON DIOXIDE LEVEL 28 MMOL/L (20-31); CHLORIDE LEVEL 109 MMOL/L (98-107); GLOMERULAR FILTRATION RATE > 60.0 (>60); GLUCOSE, FASTING 103 MG/DL (60-100); MAGNESIUM LEVEL 1.8 MG/DL (1.8-2.4); POTASSIUM SERUM 3.7 MMOL/L (3.5-5.1); SODIUM LEVEL 142 MMOL/L (136-145)
[2022-12-24] MEDS: MUPIROCIN 2% OINT 22 GM TUBE TOP SCH (09:53)
[2022-12-24 12:00] VITALS: BP 116/65; TEMP 97.8; O2SAT 98
[2022-12-24] MEDS ORDERED: DOXY100C3 PO (14:48)
[2022-12-24] MEDS ORDERED: PROBCAP14 PO (14:48)
== END 2022-12-24 16:03 | disposition home or self-care (01) | DRG 720 ==
LOC: M ED 20:44 → M ED INP 23:26 → ENRESERV 12-21 00:07 → M PCU 12-21 00:45 → M ICU 12-21 08:54 → M PCU 12-23 05:12
PROVIDERS: ADMIT Family Medicine; ATTEND Internal Medicine
DX: A41.02 Sepsis due to Methicillin resistant Staphylococcus aureus (principal); L97.909 Non-pressure chronic ulcer of unspecified part of unspecified lower leg with unspecified severity; L03.115 Cellulitis of right lower limb; F17.200 Nicotine dependence, unspecified, uncomplicated; B18.2 Chronic viral hepatitis C; Z91.030 Bee allergy status; Z91.040 Latex allergy status; Z79.899 Other long term (current) drug therapy

== ENCOUNTER 2023-02-18 02:03 | Emergency (ER) | payer MEDICAID, OTHER ==
[~2023-02-18] VITALS: Ht 160 cm; Wt 92.2 kg
[~2023-02-18 02:03] MED LIST changes: +DOXY100C3 PO; +PROBCAP14 PO; +SUBO4MIS SL
[2023-02-18 05:37] LABS: BASO # 0.1 10^3/uL (0.0-0.2); BASO % 0.4 % (0.0-1.0); EOS # 0.1 10^3/uL (0.0-0.5); EOS % 0.3 % (0.0-3.0); HEMOGLOBIN 11.6 g/dl (12.0-15.5); LYMPH # 1.6 10^3/uL (1.5-5.0); MEAN CORPUSCULAR HEMOGLOBIN 28.1 pg (27.0-33.0); MEAN CORPUSCULAR HGB CONC 33.1 g/dl (32.0-36.5); MEAN CORPUSCULAR VOLUME 84.7 fl (80.0-96.0); MONO # 0.8 10^3/uL (0.0-0.8); NEUTROPHILS # 12.3 10^3/uL (1.5-8.5); NEUTROPHILS % 82.6 % (36.0-66.0); PLATELET COUNT, AUTOMATED 356 10^3/uL (150-450); RED BLOOD COUNT 4.13 10^6/uL (4.00-5.40); WHITE BLOOD COUNT 14.9 10^3/uL (4.0-10.0)
[2023-02-18 05:46] LABS: ERYTHROCYTE SEDIMENTATION RATE > 130 mm/hr (0-20)
[2023-02-18 06:08] LABS: ALBUMIN 2.9 G/DL (3.2-5.2); ALKALINE PHOSPHATASE 102 U/L (46-116); ALT/SGPT 21 U/L (7.0-40); AST/SGOT 36 U/L (<34); BILIRUBIN,DIRECT < 0.1 MG/DL (<0.4); BILIRUBIN,TOTAL 0.3 MG/DL (0.3-1.2); BLOOD UREA NITROGEN 24 MG/DL (9-23); CALCIUM LEVEL 8.7 MG/DL (8.5-10.1); CARBON DIOXIDE LEVEL 26 MMOL/L (20-31); CHLORIDE LEVEL 101 MMOL/L (98-107); CREATININE FOR GFR 0.75 MG/DL (0.55-1.30); GLOMERULAR FILTRATION RATE > 60.0 (>58); GLUCOSE, FASTING 97 MG/DL (60-100); POTASSIUM SERUM 3.1 MMOL/L (3.5-5.1); SODIUM LEVEL 134 MMOL/L (136-145)
[2023-02-18 06:12] LABS: RSV AMPLIFICATION NEGATIVE (NEGATIVE)
[2023-02-18] MEDS ORDERED: CLINDAMYCIN 600 MG in IV 1 EA IV ONE (09:20)
[2023-02-18] MEDS ORDERED: CLEO300C2 PO (10:36)
[2023-02-18 10:47] VITALS: BP 120/62; TEMP 97.1; O2SAT 97
== END 2023-02-18 10:59 | disposition home or self-care (01) ==
LOC: M ED 02:03
DX: L03.115 Cellulitis of right lower limb (principal); Z91.030 Bee allergy status; Z91.040 Latex allergy status
CPT/HCPCS: 80048; 80076; 83605; 85025; 85652; 86140; 87040; 87070; 87077; 87186; 87205; 87631; 93971; 94760; 96365; 99284; J0737

== ENCOUNTER 2023-09-18 19:37 | Emergency (ER) | payer OTHER ==
[~2023-09-18] VITALS: Ht 160 cm; Wt 94.2 kg
[~2023-09-18 19:37] MED LIST changes: +CLEO300C2 PO
[2023-09-18 19:38] VITALS: TEMP 96.8
[2023-09-19 00:12] LABS: ALBUMIN 3.5 G/DL (3.2-5.2); ALKALINE PHOSPHATASE 95 U/L (46-116); ALT/SGPT 16 U/L (7.0-40); AST/SGOT 11 U/L (<34); BILIRUBIN,DIRECT < 0.1 MG/DL (<0.4); BILIRUBIN,TOTAL 0.2 MG/DL (0.3-1.2)
[2023-09-19 00:20] LABS: BASO # 0.1 10^3/uL (0.0-0.2); BASO % 0.7 % (0.0-1.0); EOS # 0.2 10^3/uL (0.0-0.5); HEMATOCRIT 37.5 % (36.0-47.0); HEMOGLOBIN 12.2 g/dl (12.0-15.5); LYMPH # 2.6 10^3/uL (1.5-5.0); LYMPH % 29.2 % (24.0-44.0); MEAN CORPUSCULAR HEMOGLOBIN 28.4 pg (27.0-33.0); MEAN CORPUSCULAR HGB CONC 32.5 g/dl (32.0-36.5); MEAN CORPUSCULAR VOLUME 87.4 fl (80.0-96.0); MONO # 0.8 10^3/uL (0.0-0.8); MONO % 8.6 % (2.0-8.0); NEUTROPHILS # 5.2 10^3/uL (1.5-8.5); NEUTROPHILS % 59.3 % (36.0-66.0); PLATELET COUNT, AUTOMATED 391 10^3/uL (150-450); RED BLOOD COUNT 4.29 10^6/uL (4.00-5.40); WHITE BLOOD COUNT 8.8 10^3/uL (4.0-10.0)
[2023-09-19 00:38] LABS: ERYTHROCYTE SEDIMENTATION RATE 55 mm/hr (0-20)
[2023-09-19 00:41] LABS: HCG, SERUM QUALITATIVE NEGATIVE (NEGATIVE)
[2023-09-19] MEDS: dexAMETHasone 20MG/5ML VIAL IV ONE (00:57)
[2023-09-19] MEDS ORDERED: ISOVUE-370 76% 100ML VIAL As Ordered ONE (01:25)
[2023-09-19 03:52] VITALS: O2SAT 98
[2023-09-19 04:00] VITALS: BP 115/65
[2023-09-19] MEDS ORDERED: CEPH500C PO (04:00)
[2023-09-19] MEDS: CEPHALEXIN 500 MG CAP PO ONE (04:27)
== END 2023-09-19 04:28 | disposition home or self-care (01) ==
LOC: M ED 19:37
DX: R22.0 Localized swelling, mass and lump, head (principal); B19.20 Unspecified viral hepatitis C without hepatic coma; F17.200 Nicotine dependence, unspecified, uncomplicated; Z91.030 Bee allergy status; Z91.040 Latex allergy status; Z79.2 Long term (current) use of antibiotics; Z79.899 Other long term (current) drug therapy; Z86.14 Personal history of Methicillin resistant Staphylococcus aureus infection
CPT/HCPCS: 70487; 80047; 80076; 83605; 84703; 85025; 85652; 86140; 96374; 99284; J1100; Q9967

== ENCOUNTER → 2024-02-24 | Outpatient (CLI) | payer OTHER ==
[~2024-02-24] MED LIST changes: +CEPH500C PO
[2024-02-24 14:00] LABS: BASO % 0.6 % (0.0-1.0); EOS # 0.1 10^3/uL (0.0-0.5); EOS % 0.9 % (0.0-3.0); HEMATOCRIT 35.2 % (36.0-47.0); HEMOGLOBIN 11.6 g/dl (12.0-15.5); LYMPH % 29.9 % (24.0-44.0); MEAN CORPUSCULAR HEMOGLOBIN 28.5 pg (27.0-33.0); MEAN CORPUSCULAR VOLUME 86.5 fl (80.0-96.0); MONO # 0.6 10^3/uL (0.0-0.8); MONO % 8.5 % (2.0-8.0); PLATELET COUNT, AUTOMATED 310 10^3/uL (150-450); RED BLOOD COUNT 4.07 10^6/uL (4.00-5.40); WHITE BLOOD COUNT 6.7 10^3/uL (4.0-10.0)
[2024-02-24 14:30] LABS: ALBUMIN 3.6 G/DL (3.2-5.2); ALKALINE PHOSPHATASE 60 U/L (35-104); ALT/SGPT 27 U/L (7.0-40); AST/SGOT 16 U/L (<34); BILIRUBIN,DIRECT 0.1 MG/DL (<0.4); BILIRUBIN,TOTAL 0.4 MG/DL (0.3-1.2); BLOOD UREA NITROGEN 20 MG/DL (9-23); CALCIUM LEVEL 8.9 MG/DL (8.5-10.1); CARBON DIOXIDE LEVEL 24 MMOL/L (20-31); CHLORIDE LEVEL 110 MMOL/L (98-107); CHOLESTEROL LEVEL 179 MG/DL (<200); CHOLESTEROL RISK RATIO 3.72 (<5); GLOMERULAR FILTRATION RATE > 60.0 (>58); GLUCOSE, FASTING 92 MG/DL (60-100); LDL CHOLESTEROL 100.8 MG/DL (<100); POTASSIUM SERUM 4.1 MMOL/L (3.5-5.1); SODIUM LEVEL 138 MMOL/L (136-145); TOTAL PROTEIN 6.8 G/DL (5.7-8.2); TRIGLYCERIDES LEVEL 151 MG/DL (<150)
[2024-02-24 14:32] LABS: FREE T4 0.98 NG/DL (0.89-1.76); THYROID STIMULATING HORMONE 1.672 uIU/ML (0.55-4.78)
[2024-02-24 14:33] LABS: TOTAL 25(OH) VITAMIN D 27.8 NG/ML (20.0-100.0)
== END ==
LOC: M LAB 12:44
DX: Z00.8 Encounter for other general examination (principal)

== ENCOUNTER → 2024-06-21 | Outpatient (CLI) | payer OTHER | LOC: M SOG 08:10 | PROVIDERS: ATTEND Physician Assistant | DX: M25.531 Pain in right wrist (principal); M19.031 Primary osteoarthritis, right wrist ==

== ENCOUNTER 2024-06-28 16:37 | Emergency (ER) | payer OTHER ==
[~2024-06-28] VITALS: Ht 160 cm; Wt 94.8 kg
[2024-06-28] MEDS ORDERED: ADDE15CA3 PO (16:47)
[2024-06-28] MEDS ORDERED: CLONI1TA PO (16:47)
[2024-06-28] MEDS: LIDOCAINE W/EPINEPHRINE 1% 20ML VIAL SC ONE (17:45)
[2024-06-28] MEDS: BOOSTRIX VACCINE (TETANUS/DIPHTH/ACEL. PERTUSSIS) 0.5ML SYR IM.IMMUN ONE (17:53)
[2024-06-28 18:30] VITALS: BP 144/86; TEMP 98.6; O2SAT 100
== END 2024-06-28 18:34 | disposition home or self-care (01) ==
LOC: M ED 16:37
DX: S01.511A Laceration without foreign body of lip, initial encounter (principal); Y04.8XXA Assault by other bodily force, initial encounter; Z23 Encounter for immunization; Z91.030 Bee allergy status; Z91.040 Latex allergy status; Z79.2 Long term (current) use of antibiotics; Z79.899 Other long term (current) drug therapy; Y92.9 Unspecified place or not applicable; Y93.89 Activity, other specified; Y99.9 Unspecified external cause status

== ENCOUNTER → 2024-08-31 | Outpatient (CLI) | payer OTHER ==
[~2024-08-31] MED LIST changes: +ADDE15CA3 PO; +CLONI1TA PO; +PROHANCE 279.3MG/ML 15ML VIAL As Ordered ONE; +PROHANCE 279.3MG/ML 5ML VIAL As Ordered ONE
== END ==
LOC: M RAD 15:21
PROVIDERS: ATTEND Physician Assistant
DX: R22.31 Localized swelling, mass and lump, right upper limb (principal); S56.411A Strain of extensor muscle, fascia and tendon of right index finger at forearm level, initial encounter; S56.413A Strain of extensor muscle, fascia and tendon of right middle finger at forearm level, initial encounter; X58.XXXA Exposure to other specified factors, initial encounter; Y92.9 Unspecified place or not applicable; Y93.9 Activity, unspecified; Y99.9 Unspecified external cause status
CPT/HCPCS: 73223; A9576

== ENCOUNTER → 2025-01-29 | Outpatient (REF) | payer OTHER ==
[~2025-01-29] MED LIST changes: -PROHANCE 279.3MG/ML 15ML VIAL As Ordered ONE; -PROHANCE 279.3MG/ML 5ML VIAL As Ordered ONE
== END ==
LOC: M LAB REF 11:53
PROVIDERS: ATTEND Physician Assistant Medical
DX: B34.9 Viral infection, unspecified (principal)

== ENCOUNTER 2025-02-14 06:15 | Day surgery (SDC) | payer OTHER ==
[~2025-02-14] VITALS: Ht 160 cm; Wt 97.1 kg
[2025-02-14] MEDS ORDERED: LR 1,000 ML IV SCH (06:55)
[2025-02-14] MEDS: SCOPOLAMINE 1MG TRANSDERMAL PATCH TOP ONE (07:19)
[2025-02-14 07:45] LABS: BASO # 0.1 10^3/uL (0.0-0.2); BASO % 0.7 % (0.0-1.0); EOS # 0.1 10^3/uL (0.0-0.5); EOS % 0.8 % (0.0-3.0); LYMPH # 2.1 10^3/uL (1.5-5.0); LYMPH % 27.8 % (24.0-44.0); MONO # 0.7 10^3/uL (0.0-0.8); MONO % 9.3 % (2.0-8.0); NEUTROPHILS # 4.6 10^3/uL (1.5-8.5); NEUTROPHILS % 61.1 % (36.0-66.0); PLATELET COUNT, AUTOMATED 434 10^3/uL (150-450)
[2025-02-14] MEDS ORDERED: LIDOCAINE 2% 100 MG/5 ML SDV (FOR ANES.) As Ordered ONE (08:09)
[2025-02-14] MEDS ORDERED: MIDAZOLAM INJ 2 MG/2 ML VIAL As Ordered ONE (08:09)
[2025-02-14] MEDS ORDERED: SUGAMMADEX SODIUM 500 MG/5 ML VIAL As Ordered ONE (08:09)
[2025-02-14] MEDS ORDERED: ROCURONIUM BROMIDE 50MG/5ML VIAL As Ordered ONE (08:09)
[2025-02-14] MEDS ORDERED: dexmedeTOMIDine (4 MCG/ML) 200 MCG/50 ML BTL As Ordered ONE (08:12)
[2025-02-14 08:13] LABS: HCG, SERUM QUALITATIVE NEGATIVE (NEGATIVE)
[2025-02-14] MEDS ORDERED: dexAMETHasone 4 MG/ML 1 ML VIAL As Ordered ONE (08:13)
[2025-02-14] MEDS ORDERED: KETOROLAC 30 MG/ML 1 ML VIAL As Ordered ONE (08:13)
[2025-02-14] MEDS ORDERED: ONDANSETRON 4MG/2ML VIAL As Ordered ONE (08:13)
[2025-02-14] MEDS: AMPICILLIN SOD/SULBACTAM SOD 3 GM in DEXTROSE 5% (D5W) MINI-BAG PLU 100 ML IV ONE (10:30)
[2025-02-14] MEDS: dexAMETHasone 4 MG/ML 1 ML VIAL IV ONE (10:30)
[2025-02-14] MEDS ORDERED: ACETAMINOPHEN 1000MG/100ML IV BAG As Ordered ONE (10:50)
[2025-02-14] MEDS: CHLORHEXIDINE GLUCONATE 0.12% 15 ML UDC As Ordered ONE (10:59)
[2025-02-14] MEDS ORDERED: MORPHINE 2 MG/ML 1 ML VIAL IV PRN (11:45)
[2025-02-14] MEDS ORDERED: HYDROMORPHONE HCL 0.5 MG/0.5 ML SYRINGE IV PRN (11:45)
[2025-02-14] MEDS ORDERED: SEVOFLURANE INHAL SOLN 250 ML BTL As Ordered ONE (11:56)
[2025-02-14] MEDS ORDERED: IBUPROFEN 800 MG TAB PO ONE (12:45)
[2025-02-14 12:55] VITALS: BP 104/55; TEMP 97.9; O2SAT 97
== END 2025-02-14 13:14 | disposition home or self-care (01) ==
LOC: M SDC 06:15
PROVIDERS: ATTEND Dentist
DX: K02.9 Dental caries, unspecified (principal); F40.232 Fear of other medical care; F41.9 Anxiety disorder, unspecified; Z91.040 Latex allergy status; F19.11 Other psychoactive substance abuse, in remission; Z79.899 Other long term (current) drug therapy; F17.200 Nicotine dependence, unspecified, uncomplicated
CPT/HCPCS: 36415; 81025; 84703; 85025; 88300; D7140; D7210; J0131; J0295; J0666; J1100; J1885; J2250; J2405; J2765; J3010